=== PATIENT | male | born 1990 | race Caucasian/White ===

== ENCOUNTER → 2016-10-07 | Outpatient (REF) | payer MEDICAID ==
[~2016-10-07] MED LIST: DEPA250T3; DEPA500T; DEPA500T2 OR; RISP0.5T20; RISP2TAB12; RISP2TAB12 OR; RISP3TAB16; SERO400T3; SERO400T3 OR; TENEX; ZONEGRAN; ZONEGRAN PO; Zonegran
[2016-10-07 13:26] LABS: BASO % 0.2 % (0.0-1.0); EOS % 0.3 % (0.0-3.0); LARGE UNSTAINED CELL # 0.1 K/mm3 (0.0-0.4); LARGE UNSTAINED CELL % 1.9 % (0.0-4.0); LYMPH # 3.5 K/mm3 (1.5-6.5); MEAN CORPUSCULAR HEMOGLOBIN 33.9 pg (27.0-33.0); MEAN CORPUSCULAR HGB CONC 34.3 g/dl (32.0-36.5); MEAN CORPUSCULAR VOLUME 98.7 fl (80.0-96.0); MONO # 0.3 K/mm3 (0.0-0.8); MONO % 5.7 % (0.0-5.0); NEUTROPHILS # 1.4 K/mm3 (1.8-7.7); NEUTROPHILS % 25.9 % (36.0-66.0); PLATELET COUNT, AUTOMATED 172 k/mm3 (150-450); RED CELL DISTRIBUTION WIDTH 13.9 % (11.5-14.5); WHITE BLOOD COUNT 5.2 K/mm3 (4.0-10.0)
[2016-10-07 13:42] LABS: ALBUMIN 3.6 GM/DL (3.2-5.2); ALBUMIN/GLOBULIN RATIO 0.86 (1.00-1.93); ALKALINE PHOSPHATASE 109 U/L (45-117); ALT/SGPT 57 U/L (12-78); ANION GAP 8 MEQ/L (8-16); AST/SGOT 24 U/L (15-37); BILIRUBIN,TOTAL 0.3 MG/DL (0.2-1.0); BLOOD UREA NITROGEN 8 MG/DL (7-18); CARBON DIOXIDE LEVEL 28 MEQ/L (21-32); CHLORIDE LEVEL 107 MEQ/L (98-107); CREATININE FOR GFR 0.77 MG/DL (0.70-1.30); GLOMERULAR FILTRATION RATE > 60.0 (>60); GLUCOSE, FASTING 132 MG/DL (70-105); POTASSIUM SERUM 3.7 MEQ/L (3.5-5.1); SODIUM LEVEL 143 MEQ/L (136-145); TOTAL PROTEIN 7.8 GM/DL (6.4-8.2)
== END ==
LOC: M LABNEURO 09:48
PROVIDERS: ATTEND Psychiatry & Neurology Neurology
DX: R56.9 Unspecified convulsions (principal)

== ENCOUNTER → 2016-11-07 | Outpatient (REF) | payer MEDICAID ==
[2016-11-07 14:27] LABS: ANION GAP 10 MEQ/L (8-16); BLOOD UREA NITROGEN 8 MG/DL (7-18); CALCIUM LEVEL 8.9 MG/DL (8.5-10.1); CARBON DIOXIDE LEVEL 29 MEQ/L (21-32); CHLORIDE LEVEL 102 MEQ/L (98-107); CREATININE FOR GFR 0.66 MG/DL (0.70-1.30); FREE T4 0.99 NG/DL (0.76-1.46); GLOMERULAR FILTRATION RATE > 60.0 (>60); GLUCOSE, FASTING 262 MG/DL (70-105); POTASSIUM SERUM 3.7 MEQ/L (3.5-5.1); SODIUM LEVEL 141 MEQ/L (136-145)
== END ==
LOC: M LABNEURO 10:49
PROVIDERS: ATTEND Internal Medicine Endocrinology, Diabetes & Metabolism
DX: D49.7 Neoplasm of unspecified behavior of endocrine glands and other parts of nervous system (principal)

== ENCOUNTER → 2016-11-15 | Outpatient (REF) | payer MEDICAID ==
[2016-11-15 14:02] LABS: ANION GAP 7 MEQ/L (8-16); BLOOD UREA NITROGEN 9 MG/DL (7-18); CALCIUM LEVEL 8.8 MG/DL (8.5-10.1); CARBON DIOXIDE LEVEL 29 MEQ/L (21-32); CHLORIDE LEVEL 102 MEQ/L (98-107); CREATININE FOR GFR 0.61 MG/DL (0.70-1.30); GLOMERULAR FILTRATION RATE > 60.0 (>60); GLUCOSE, FASTING 144 MG/DL (70-105); POTASSIUM SERUM 4.3 MEQ/L (3.5-5.1); SODIUM LEVEL 138 MEQ/L (136-145)
== END ==
LOC: M LABNEURO 13:13
PROVIDERS: ATTEND Internal Medicine Endocrinology, Diabetes & Metabolism
DX: D49.7 Neoplasm of unspecified behavior of endocrine glands and other parts of nervous system (principal)

== ENCOUNTER → 2016-11-25 | Outpatient (REF) | payer MEDICAID ==
[2016-11-25 19:07] LABS: ANION GAP 7 MEQ/L (8-16); BLOOD UREA NITROGEN 9 MG/DL (7-18); CALCIUM LEVEL 9.5 MG/DL (8.5-10.1); CARBON DIOXIDE LEVEL 30 MEQ/L (21-32); CHLORIDE LEVEL 101 MEQ/L (98-107); GLOMERULAR FILTRATION RATE > 60.0 (>60); GLUCOSE, FASTING 169 MG/DL (70-105); POTASSIUM SERUM 4.4 MEQ/L (3.5-5.1); SODIUM LEVEL 138 MEQ/L (136-145)
== END ==
LOC: M LABNEURO 16:55
PROVIDERS: ATTEND Internal Medicine Endocrinology, Diabetes & Metabolism
DX: D49.7 Neoplasm of unspecified behavior of endocrine glands and other parts of nervous system (principal)

== ENCOUNTER → 2016-12-02 | Outpatient (REF) | payer MEDICAID | LOC: M LABNEURO 12:40 | PROVIDERS: ATTEND Internal Medicine Endocrinology, Diabetes & Metabolism | DX: R73.02 Impaired glucose tolerance (oral) (principal) ==

== ENCOUNTER 2017-06-17 10:33 | Outpatient (CLI) | payer MEDICAID ==
[2017-06-17] MEDS ORDERED: PROHANCE 279.3MG/ML 15ML VIAL (A9576) As Ordered (12:17)
[2017-06-17] MEDS ORDERED: PROHANCE 279.3MG/ML 5ML VIAL (A9576) As Ordered (12:17)
[2017-06-17] MEDS ORDERED: MIDAZOLAM INJ 2 MG/2 ML VIAL (J2250) As Ordered ×2 (13:46)
[2017-06-17] MEDS ORDERED: ONDANSETRON 4MG/2ML VIAL (J2405) IV (15:15)
[2017-06-17] MEDS ORDERED: LR 1,000 ML IV (15:15)
== END 2017-06-17 16:40 | disposition home or self-care (01) ==
LOC: M RAD 10:33
DX: G93.89 Other specified disorders of brain (principal); Z98.890 Other specified postprocedural states
CPT/HCPCS: A9576

== ENCOUNTER → 2017-07-22 | Outpatient (REF) | payer MEDICAID ==
[2017-07-22 14:11] LABS: ALBUMIN 3.8 GM/DL (3.2-5.2); ALBUMIN/GLOBULIN RATIO 1.09 (1.00-1.93); ALKALINE PHOSPHATASE 121 U/L (45-117); ALT/SGPT 126 U/L (12-78); ANION GAP 10 MEQ/L (8-16); AST/SGOT 65 U/L (7-37); BILIRUBIN,TOTAL 0.4 MG/DL (0.2-1.0); BLOOD UREA NITROGEN 14 MG/DL (7-18); CALCIUM LEVEL 8.9 MG/DL (8.5-10.1); CARBON DIOXIDE LEVEL 26 MEQ/L (21-32); CHLORIDE LEVEL 104 MEQ/L (98-107); CREATININE FOR GFR 0.56 MG/DL (0.70-1.30); GLOMERULAR FILTRATION RATE > 60.0 (>60); GLUCOSE, FASTING 167 MG/DL (70-105); POTASSIUM SERUM 3.8 MEQ/L (3.5-5.1); SODIUM LEVEL 140 MEQ/L (136-145); TOTAL PROTEIN 7.3 GM/DL (6.4-8.2); VALPROIC ACID (DEPAKOTE) 81.2 UG/ML (50.0-100.0)
[2017-07-22 15:10] LABS: BASO % 0.2 % (0.0-1.0); EOS % 0.9 % (0.0-3.0); HEMATOCRIT 37.8 % (42.0-52.0); HEMOGLOBIN 13.2 g/dl (14.0-18.0); LYMPH # 2.8 10^3/uL (1.5-6.5); MEAN CORPUSCULAR HEMOGLOBIN 32.4 pg (27.0-33.0); MEAN CORPUSCULAR HGB CONC 34.9 g/dl (32.0-36.5); MEAN CORPUSCULAR VOLUME 92.9 fl (80.0-96.0); MONO # 0.2 10^3/uL (0.0-0.8); MONO % 4.5 % (0.0-5.0); NEUTROPHILS # 1.4 10^3/uL (1.8-7.7); NEUTROPHILS % 31.4 % (36.0-66.0); PLATELET COUNT, AUTOMATED 189 10^3/uL (150-450); RED BLOOD COUNT 4.07 10^6/uL (4.30-6.10); RED CELL DISTRIBUTION WIDTH 12.3 % (11.5-14.5); WHITE BLOOD COUNT 4.5 10^3/uL (4.0-10.0)
== END ==
LOC: M LABNEURO 09:38
DX: R56.9 Unspecified convulsions (principal)

== ENCOUNTER → 2017-07-29 | Outpatient (REF) | payer MEDICAID ==
[2017-07-29 15:15] LABS: ANION GAP 6 MEQ/L (8-16); BLOOD UREA NITROGEN 11 MG/DL (7-18); CALCIUM LEVEL 9.6 MG/DL (8.5-10.1); CARBON DIOXIDE LEVEL 31 MEQ/L (21-32); CHLORIDE LEVEL 104 MEQ/L (98-107); CREATININE FOR GFR 0.59 MG/DL (0.70-1.30); FREE T4 1.21 NG/DL (0.76-1.46); GLOMERULAR FILTRATION RATE > 60.0 (>60); GLUCOSE, FASTING 77 MG/DL (70-105); POTASSIUM SERUM 4.1 MEQ/L (3.5-5.1); SODIUM LEVEL 141 MEQ/L (136-145)
[2017-07-29 15:25] LABS: TESTOSTERONE < 7 NG/DL (241-827)
== END ==
LOC: M LABNEURO 14:17
DX: E29.1 Testicular hypofunction (principal); E03.8 Other specified hypothyroidism; D49.7 Neoplasm of unspecified behavior of endocrine glands and other parts of nervous system; E27.8 Other specified disorders of adrenal gland

== ENCOUNTER → 2017-09-23 | Outpatient (REF) | payer MEDICAID ==
[2017-09-23 14:02] LABS: ALBUMIN/GLOBULIN RATIO 1.11 (1.00-1.93); ALKALINE PHOSPHATASE 140 U/L (45-117); ALT/SGPT 91 U/L (12-78); ANION GAP 6 MEQ/L (8-16); AST/SGOT 30 U/L (7-37); BILIRUBIN,TOTAL 0.4 MG/DL (0.2-1.0); BLOOD UREA NITROGEN 8 MG/DL (7-18); CARBON DIOXIDE LEVEL 30 MEQ/L (21-32); CHLORIDE LEVEL 107 MEQ/L (98-107); CREATININE FOR GFR 0.57 MG/DL (0.70-1.30); GLOMERULAR FILTRATION RATE > 60.0 (>60); GLUCOSE, FASTING 93 MG/DL (70-100); POTASSIUM SERUM 3.9 MEQ/L (3.5-5.1); SODIUM LEVEL 143 MEQ/L (136-145); TOTAL PROTEIN 7.6 GM/DL (6.4-8.2); VALPROIC ACID (DEPAKOTE) 72.1 UG/ML (50.0-100.0)
[2017-09-23 14:09] LABS: BASO % 0.3 % (0.0-1.0); EOS % 0.6 % (0.0-3.0); HEMATOCRIT 40.9 % (42.0-52.0); IMMATURE GRANULOCYTE % 0.5 % (0-3.0); LYMPH # 3.3 10^3/uL (1.5-6.5); LYMPH % 53.4 % (24.0-44.0); MEAN CORPUSCULAR HEMOGLOBIN 32.1 pg (27.0-33.0); MEAN CORPUSCULAR HGB CONC 34.2 g/dl (32.0-36.5); MEAN CORPUSCULAR VOLUME 93.8 fl (80.0-96.0); MONO # 0.7 10^3/uL (0.0-0.8); NEUTROPHILS # 2.1 10^3/uL (1.8-7.7); NEUTROPHILS % 34.2 % (36.0-66.0); PLATELET COUNT, AUTOMATED 221 10^3/uL (150-450); RED BLOOD COUNT 4.36 10^6/uL (4.30-6.10); RED CELL DISTRIBUTION WIDTH 12.7 % (11.5-14.5); WHITE BLOOD COUNT 6.3 10^3/uL (4.0-10.0)
== END ==
LOC: M LABNEURO 09:53
DX: R56.9 Unspecified convulsions (principal)
CPT/HCPCS: 80164

== ENCOUNTER → 2017-10-15 | Outpatient (CLI) | payer MEDICAID | LOC: M RAD 09:34 | DX: N63.10 Unspecified lump in the right breast, unspecified quadrant (principal) | CPT/HCPCS: 77066 ==

== ENCOUNTER → 2017-12-29 | Outpatient (REF) | payer MEDICAID ==
[2017-12-29 17:32] LABS: ALBUMIN 4.1 GM/DL (3.2-5.2); ANION GAP 9 MEQ/L (8-16); BLOOD UREA NITROGEN 9 MG/DL (7-18); CALCIUM LEVEL 9.1 MG/DL (8.5-10.1); CARBON DIOXIDE LEVEL 26 MEQ/L (21-32); CHLORIDE LEVEL 103 MEQ/L (98-107); CREATININE FOR GFR 0.69 MG/DL (0.70-1.30); GLOMERULAR FILTRATION RATE > 60.0 (>60); GLUCOSE, FASTING 94 MG/DL (70-100); POTASSIUM SERUM 4.5 MEQ/L (3.5-5.1); SODIUM LEVEL 138 MEQ/L (136-145)
[2017-12-29 17:39] LABS: ESTIMATED AVERAGE GLUCOSE 126 MG/DL (60-110)
[2017-12-29 17:42] LABS: TESTOSTERONE 871 NG/DL (241-827)
== END ==
LOC: M LABNEURO 13:52
DX: E29.1 Testicular hypofunction (principal); M79.89 Other specified soft tissue disorders; Z13.1 Encounter for screening for diabetes mellitus

== ENCOUNTER 2018-01-05 11:28 | Emergency (ER) | payer MEDICAID ==
[2018-01-05] MEDS: ONDANSETRON 4MG/2ML VIAL (J2405) IV (13:52)
[2018-01-05] MEDS: MORPHINE 4 MG/ML 1ML VIAL/SYRINGE (J2270) IV ×3 (13:52→15:56)
[2018-01-05] MEDS: NS 1,000 ML IV (15:06)
== END 2018-01-05 16:23 | disposition short-term general hospital (02) ==
LOC: M ED 11:28
DX: S82.252A Displaced comminuted fracture of shaft of left tibia, initial encounter for closed fracture (principal); S82.452A Displaced comminuted fracture of shaft of left fibula, initial encounter for closed fracture; W01.0XXA Fall on same level from slipping, tripping and stumbling without subsequent striking against object, initial encounter; Y92.89 Other specified places as the place of occurrence of the external cause; Y93.9 Activity, unspecified; Y99.9 Unspecified external cause status; E11.9 Type 2 diabetes mellitus without complications; R56.9 Unspecified convulsions; F84.0 Autistic disorder; Z79.84 Long term (current) use of oral hypoglycemic drugs; Z79.899 Other long term (current) drug therapy
CPT/HCPCS: J2270

== ENCOUNTER 2018-03-30 09:06 | Outpatient (RCR) | payer MEDICAID | END 2018-04-19 | LOC: M PT 09:06 | DX: S82.202D Unspecified fracture of shaft of left tibia, subsequent encounter for closed fracture with routine healing (principal); S82.402D Unspecified fracture of shaft of left fibula, subsequent encounter for closed fracture with routine healing | CPT/HCPCS: 97110 ==

== ENCOUNTER → 2018-04-06 | Outpatient (REF) | payer MEDICAID ==
[2018-04-06 19:10] LABS: ANION GAP 13 MEQ/L (8-16); BLOOD UREA NITROGEN 8 MG/DL (7-18); CALCIUM LEVEL 9.4 MG/DL (8.5-10.1); CARBON DIOXIDE LEVEL 24 MEQ/L (21-32); CHLORIDE LEVEL 103 MEQ/L (98-107); CREATININE FOR GFR 0.75 MG/DL (0.70-1.30); GLOMERULAR FILTRATION RATE > 60.0 (>60); GLUCOSE, FASTING 159 MG/DL (70-100); POTASSIUM SERUM 4.4 MEQ/L (3.5-5.1); SODIUM LEVEL 140 MEQ/L (136-145); TESTOSTERONE 372 NG/DL (241-827)
== END ==
LOC: M LABNEURO 14:44
DX: D49.7 Neoplasm of unspecified behavior of endocrine glands and other parts of nervous system (principal)

== ENCOUNTER 2018-04-21 09:11 | Outpatient (RCR) | payer MEDICAID | END 2018-05-20 | disposition home or self-care (01) | LOC: M PT 09:11 | DX: S82.202D Unspecified fracture of shaft of left tibia, subsequent encounter for closed fracture with routine healing (principal); S82.402D Unspecified fracture of shaft of left fibula, subsequent encounter for closed fracture with routine healing | CPT/HCPCS: 97110 ==

== ENCOUNTER 2018-06-04 09:15 | Outpatient (RCR) | payer MEDICAID | END 2018-06-19 | LOC: M PT 09:15 | DX: S82.402D Unspecified fracture of shaft of left fibula, subsequent encounter for closed fracture with routine healing (principal); S82.202D Unspecified fracture of shaft of left tibia, subsequent encounter for closed fracture with routine healing; X58.XXXD Exposure to other specified factors, subsequent encounter | CPT/HCPCS: 97110 ==

== ENCOUNTER 2018-06-23 09:10 | Outpatient (RCR) | payer MEDICAID ==
[~2018-06-23 09:10] MED LIST changes: +DESM0.1T12 PO; +GABA-843; +HYDR-3291 PO; +LEVE750T5 PO; +LEVO100T5; +METF500T4; +METH1TAB40; +OLAN15TA PO; +TEST200I14; +TYLE325C PO
== END 2018-07-20 ==
LOC: M PT 09:10
PROVIDERS: ATTEND Orthopaedic Surgery
DX: S82.402D Unspecified fracture of shaft of left fibula, subsequent encounter for closed fracture with routine healing (principal); S82.202D Unspecified fracture of shaft of left tibia, subsequent encounter for closed fracture with routine healing

== ENCOUNTER → 2018-07-06 | Outpatient (REF) | payer MEDICAID ==
[2018-07-06 18:00] LABS: BLOOD UREA NITROGEN 8 MG/DL (7-18); CALCIUM LEVEL 8.8 MG/DL (8.5-10.1); CARBON DIOXIDE LEVEL 29 MEQ/L (21-32); CHLORIDE LEVEL 104 MEQ/L (98-107); CREATININE FOR GFR 0.74 MG/DL (0.70-1.30); GLOMERULAR FILTRATION RATE > 60.0 (>60); GLUCOSE, FASTING 81 MG/DL (70-100); POTASSIUM SERUM 4.2 MEQ/L (3.5-5.1); SODIUM LEVEL 140 MEQ/L (136-145)
== END ==
LOC: M LABNEURO 13:41
PROVIDERS: ATTEND Internal Medicine Endocrinology, Diabetes & Metabolism
DX: E23.2 Diabetes insipidus (principal)

== ENCOUNTER → 2018-08-14 | Outpatient (REF) | payer MEDICAID ==
[~2018-08-14] MED LIST changes: -DESM0.1T12 PO; +DESM0.1T2 PO
[2018-08-14 14:10] LABS: HEMOGLOBIN A1c 6.3 %
[2018-08-14 15:12] LABS: BLOOD UREA NITROGEN 7 MG/DL (7-18); CALCIUM LEVEL 8.6 MG/DL (8.5-10.1); CARBON DIOXIDE LEVEL 25 MEQ/L (21-32); CHLORIDE LEVEL 105 MEQ/L (98-107); CREATININE FOR GFR 0.74 MG/DL (0.70-1.30); FREE T4 1.18 NG/DL (0.76-1.46); GLOMERULAR FILTRATION RATE > 60.0 (>60); GLUCOSE, FASTING 90 MG/DL (70-100); POTASSIUM SERUM 4.2 MEQ/L (3.5-5.1); SODIUM LEVEL 139 MEQ/L (136-145)
[2018-08-14 16:01] LABS: TESTOSTERONE 466 NG/DL (241-827)
== END ==
LOC: M LABNEURO 08:49
PROVIDERS: ATTEND Internal Medicine Endocrinology, Diabetes & Metabolism
DX: E23.2 Diabetes insipidus (principal)

== ENCOUNTER 2018-09-08 12:37 | Outpatient (CLI) | payer MEDICAID ==
[2018-09-08] MEDS ORDERED: PROHANCE 279.3MG/ML 5ML VIAL (A9576) As Ordered ONE (14:28)
[2018-09-08] MEDS ORDERED: PROHANCE 279.3MG/ML 15ML VIAL (A9576) As Ordered ONE (14:29)
[2018-09-08 16:40] VITALS: BP 139/74
--- NOTE | 2018-09-09 08:48 | REP ---
MRI BRAIN WITHOUT AND WITH CONTRAST: HISTORY: Craniopharyngioma. CONTRAST: ProHance 19 mL. COMPARISON: 02/27/2016 and 06/17/2017. The examination is limited secondary to motion. Areas of increased signal intensity on T2-weighted images are present in the posterior parietal lobes. There is dilatation of the overlying cortical sulci and posterior bodies and atria of the lateral ventricles. This represents encephalomalacia. There is no intraparenchymal hemorrhage, infarct or midline shift. There is no hydrocephalus or extracerebral collection. Postoperative change is present in the sella turcica. A small amount of residual enhancing tissue is present in the sella turcica. There is inferior retraction of the optic chiasm, anterior floor of the third ventricle and infundibulum to the right. The optic chiasm is atrophic. The cavernous sinuses are normal in appearance. Mucosal thickening is present in the right maxillary sinus. IMPRESSION: 1. Bilateral parotid lobe encephalomalacia. 2. The patient is status post resection of a pituitary tumor. There is no recurrent tumor. Electronically Signed by Jesus Lemus MD 09/09/2018 08:50 A
== END 2018-09-08 17:49 | disposition home or self-care (01) ==
LOC: M SDC 12:37
PROVIDERS: ATTEND Neurological Surgery
DX: D44.4 Neoplasm of uncertain behavior of craniopharyngeal duct (principal); Z98.890 Other specified postprocedural states
CPT/HCPCS: 70553; 99152; 99153; A9576

== ENCOUNTER → 2019-01-14 | Outpatient (REF) | payer MEDICAID ==
[~2019-01-14] MED LIST changes: +ATIV1TAB10 PO; -HYDR-3291 PO; +HYDR-4513 PO; +HYDR50TA70 PO; +KLON2TAB PO; +RANI1SYP PO; +ZYPR20TA PO
[2019-01-14 13:41] LABS: BASO % 0.3 % (0.0-1.0); EOS # 0.1 10^3/uL (0.0-0.50); EOS % 0.9 % (0.0-3.0); HEMATOCRIT 37.5 % (42.0-52.0); HEMOGLOBIN 13.1 g/dl (13.5-17.5); LYMPH # 2.8 10^3/uL (1.5-6.5); MEAN CORPUSCULAR HEMOGLOBIN 31.3 pg (27.0-33.0); MEAN CORPUSCULAR HGB CONC 34.9 g/dl (32.0-36.5); MEAN CORPUSCULAR VOLUME 89.7 fl (80.0-96.0); MONO # 0.4 10^3/uL (0.0-0.8); NEUTROPHILS # 2.5 10^3/uL (1.8-7.7); NEUTROPHILS % 43.5 % (36.0-66.0); PLATELET COUNT, AUTOMATED 226 10^3/uL (150-450); RED BLOOD COUNT 4.18 10^6/uL (4.30-6.10); WHITE BLOOD COUNT 5.8 10^3/uL (4.0-10.0)
[2019-01-14 14:04] LABS: ALBUMIN 4.1 GM/DL (3.2-5.2); ALT/SGPT 85 U/L (12-78); BILIRUBIN,TOTAL 0.6 MG/DL (0.2-1.0); BLOOD UREA NITROGEN 10 MG/DL (7-18); CALCIUM LEVEL 9.5 MG/DL (8.5-10.1); CARBON DIOXIDE LEVEL 25 MEQ/L (21-32); CHLORIDE LEVEL 107 MEQ/L (98-107); CREATININE FOR GFR 0.82 MG/DL (0.70-1.30); GLOMERULAR FILTRATION RATE > 60.0 (>60); GLUCOSE, FASTING 87 MG/DL (70-100); POTASSIUM SERUM 3.7 MEQ/L (3.5-5.1); SODIUM LEVEL 139 MEQ/L (136-145); TOTAL PROTEIN 7.5 GM/DL (6.4-8.2)
== END ==
LOC: M LABNEURO 11:22
PROVIDERS: ATTEND Psychiatry & Neurology Neurology
DX: G40.909 Epilepsy, unspecified, not intractable, without status epilepticus (principal)

== ENCOUNTER 2019-01-23 19:05 | Emergency (ER) | payer MEDICAID ==
[~2019-01-23 19:05] MED LIST changes: -ATIV1TAB10 PO; -HYDR50TA70 PO; -KLON2TAB PO; -RANI1SYP PO; -ZYPR20TA PO
[2019-01-23 20:29] LABS: HEMATOCRIT 39.2 % (42.0-52.0); HEMOGLOBIN 13.6 g/dl (13.5-17.5); MEAN CORPUSCULAR HEMOGLOBIN 30.8 pg (27.0-33.0); MEAN CORPUSCULAR HGB CONC 34.7 g/dl (32.0-36.5); MEAN CORPUSCULAR VOLUME 88.9 fl (80.0-96.0); PLATELET COUNT, AUTOMATED 222 10^3/uL (150-450); RED BLOOD COUNT 4.41 10^6/uL (4.30-6.10); WHITE BLOOD COUNT 6.4 10^3/uL (4.0-10.0)
[2019-01-23 20:49] LABS: AMPHETAMINES LEVEL URINE NEGATIVE (NEGATIVE); BARBITURATES URINE NEGATIVE (NEGATIVE); BENZODIAZEPINES URINE NEGATIVE (NEGATIVE); CANNABINOIDS URINE NEGATIVE (NEGATIVE); COCAINE METABOLITE URINE NEGATIVE (NEGATIVE); METHADONE URINE NEGATIVE (NEGATIVE); OPIATES URINE NEGATIVE (NEGATIVE); PHENCYCLIDINE URINE NEGATIVE (NEGATIVE)
[2019-01-23 21:02] LABS: ACETAMINOPHEN LEVEL < 2.0 UG/ML (10.0-30.0); ALBUMIN 3.9 GM/DL (3.2-5.2); ALT/SGPT 102 U/L (12-78); BILIRUBIN,DIRECT < 0.1 MG/DL (0.0-0.2); BILIRUBIN,TOTAL 0.2 MG/DL (0.2-1.0); BLOOD UREA NITROGEN 9 MG/DL (7-18); CALCIUM LEVEL 8.8 MG/DL (8.5-10.1); CARBON DIOXIDE LEVEL 24 MEQ/L (21-32); CHLORIDE LEVEL 107 MEQ/L (98-107); CREATININE FOR GFR 0.79 MG/DL (0.70-1.30); ETHYL ALCOHOL (ETHANOL) < 0.003 % (0.000-0.010); GLOMERULAR FILTRATION RATE > 60.0 (>60); GLUCOSE, FASTING 101 MG/DL (70-100); POTASSIUM SERUM 4.4 MEQ/L (3.5-5.1); SALICYLATE LEVEL < 1.7 MG/DL (5.0-30.0); SODIUM LEVEL 140 MEQ/L (136-145); THYROID STIMULATING HORMONE < 0.005 uIU/ML (0.358-3.740); TOTAL PROTEIN 7.7 GM/DL (6.4-8.2)
[2019-01-23] MEDS ORDERED: levETIRAcetam 250MG TABLET (KEPPRA) PO ONE (22:15)
[2019-01-23] MEDS ORDERED: OLANZapine 5 MG TAB PO ONE (22:15)
[2019-01-23] MEDS ORDERED: ATIV1TAB10 PO (22:42)
[2019-01-23] MEDS ORDERED: RANI1SYP PO (22:42)
[2019-01-23] MEDS ORDERED: HYDR50TA70 PO (22:42)
[2019-01-23] MEDS ORDERED: raNITIdine SYRUP 150 MG/10 ML UDC PO ONE (23:00)
[2019-01-23] MEDS ORDERED: DESMOPRESSIN ACETATE 0.1 MG TAB PO ONE (23:00)
[2019-01-24] MEDS ORDERED: levETIRAcetam 250MG TABLET (KEPPRA) PO ONE (13:00)
[2019-01-24] MEDS ORDERED: metFORMIN (GLUCOPHAGE) 1000 MG TABLET PO ONE (13:00)
[2019-01-24] MEDS ORDERED: hydrOXYzine 50 MG TAB PO ONE (13:00)
[2019-01-24] MEDS ORDERED: ONDANSETRON 4 MG ORAL DISINTEGRATING TAB (Q0162 PER 1MG) PO ONE (13:45)
[2019-01-24] MEDS ORDERED: ZYPR20TA PO (14:41)
[2019-01-24] MEDS ORDERED: KLON2TAB PO (14:42)
[2019-01-24] MEDS ORDERED: LORazepam 2 MG TAB PO STA (15:54)
[2019-01-24] MEDS ORDERED: hydrOXYzine 50 MG TAB PO PRN (16:00)
[2019-01-24] MEDS: DESMOPRESSIN ACETATE 0.1 MG TAB PO SCH (21:32)
[2019-01-24] MEDS ORDERED: OLANZapine 10 MG TAB PO ONE (22:00)
[2019-01-24] MEDS ORDERED: clonazePAM 1 MG TAB PO ONE (22:00)
[2019-01-25] MEDS ORDERED: LEVOTHYROXINE 100MCG TABLET (0.1MG) PO SCH (06:00)
[2019-01-25] MEDS: DESMOPRESSIN ACETATE 0.1 MG TAB PO SCH (10:58)
[2019-01-25] MEDS ORDERED: LORazepam 0.5 MG TAB PO STA (12:20)
[2019-01-25 13:40] VITALS: BP 123/75
== END 2019-01-25 13:38 | disposition home or self-care (01) ==
LOC: M ED 19:05
DX: F91.9 Conduct disorder, unspecified (principal); E11.9 Type 2 diabetes mellitus without complications; E23.2 Diabetes insipidus; G43.909 Migraine, unspecified, not intractable, without status migrainosus; Z79.899 Other long term (current) drug therapy; Z79.890 Hormone replacement therapy; Z79.84 Long term (current) use of oral hypoglycemic drugs
CPT/HCPCS: 36415; 80048; 80076; 80307; 84443; 85027; 99284; G0480; Q0162

== ENCOUNTER → 2019-02-04 | Outpatient (REF) | payer MEDICAID ==
[~2019-02-04] MED LIST changes: +ATIV1TAB10 PO; +HYDR50TA70 PO; +KLON2TAB PO; +RANI1SYP PO; +ZYPR20TA PO
[2019-02-04 13:41] LABS: FREE T3 3.2 PG/ML (2.2-4.0); FREE T4 1.23 NG/DL (0.76-1.46)
[2019-02-04 13:43] LABS: TESTOSTERONE < 7 NG/DL (241-827); TOTAL 25(OH) VITAMIN D 14.7 NG/ML (30.0-100.0); VITAMIN B12 LEVEL 585 PG/ML (247-911)
== END ==
LOC: M SFHCPLAZ 12:10
PROVIDERS: ATTEND Family Medicine
DX: R45.86 Emotional lability (principal)

== ENCOUNTER 2019-02-15 13:32 | Inpatient (IN) | payer MEDICAID ==
[~2019-02-15] VITALS: Ht 154.9 cm; Wt 87.7 kg
[~2019-02-15 13:32] MED LIST changes: -LEVO100T5; +LEVO100T5 PO; -METF500T4; +METF500T4 PO
[2019-02-15] MEDS ORDERED: LORazepam 2 MG TAB PO ONE (14:00)
[2019-02-15 14:52] LABS: HEMATOCRIT 39.3 % (42.0-52.0); HEMOGLOBIN 13.8 g/dl (13.5-17.5); MEAN CORPUSCULAR HEMOGLOBIN 31.7 pg (27.0-33.0); MEAN CORPUSCULAR HGB CONC 35.1 g/dl (32.0-36.5); MEAN CORPUSCULAR VOLUME 90.1 fl (80.0-96.0); PLATELET COUNT, AUTOMATED 228 10^3/uL (150-450); RED BLOOD COUNT 4.36 10^6/uL (4.30-6.10); WHITE BLOOD COUNT 6.5 10^3/uL (4.0-10.0)
[2019-02-15 15:13] LABS: AMPHETAMINES LEVEL URINE NEGATIVE (NEGATIVE); BARBITURATES URINE NEGATIVE (NEGATIVE); BENZODIAZEPINES URINE NEGATIVE (NEGATIVE); CANNABINOIDS URINE NEGATIVE (NEGATIVE); COCAINE METABOLITE URINE NEGATIVE (NEGATIVE); METHADONE URINE NEGATIVE (NEGATIVE); OPIATES URINE NEGATIVE (NEGATIVE); PHENCYCLIDINE URINE NEGATIVE (NEGATIVE)
[2019-02-15 15:27] LABS: ACETAMINOPHEN LEVEL < 2.0 UG/ML (10.0-30.0); ALBUMIN 4.2 GM/DL (3.2-5.2); ALT/SGPT 77 U/L (12-78); BILIRUBIN,DIRECT 0.1 MG/DL (0.0-0.2); BILIRUBIN,TOTAL 0.4 MG/DL (0.2-1.0); BLOOD UREA NITROGEN 13 MG/DL (7-18); CALCIUM LEVEL 9.5 MG/DL (8.5-10.1); CARBON DIOXIDE LEVEL 26 MEQ/L (21-32); CHLORIDE LEVEL 108 MEQ/L (98-107); CREATININE FOR GFR 0.82 MG/DL (0.70-1.30); ETHYL ALCOHOL (ETHANOL) < 0.003 % (0.000-0.010); GLOMERULAR FILTRATION RATE > 60.0 (>60); GLUCOSE, FASTING 93 MG/DL (70-100); SALICYLATE LEVEL < 1.7 MG/DL (5.0-30.0); SODIUM LEVEL 141 MEQ/L (136-145); THYROID STIMULATING HORMONE 0.007 uIU/ML (0.358-3.740); TOTAL PROTEIN 7.6 GM/DL (6.4-8.2)
[2019-02-15 16:10] LABS: FREE T4 1.25 NG/DL (0.76-1.46)
[2019-02-15] MEDS ORDERED: MOM 30ML SUSPENSION UDC PO PRN (16:30)
[2019-02-15 17:44] VITALS: BP 123/85
[2019-02-15] MEDS: HALOPERIDOL 5 MG TAB PO PRN ×2 (18:53→22:33)
[2019-02-15] MEDS: LORazepam 2 MG TAB PO PRN (18:53)
[2019-02-15] MEDS: diphenhydrAMINE 50 MG CAP PO PRN ×2 (18:53→22:33)
[2019-02-15] MEDS: traZODone 50 MG TAB PO PRN (22:14)
[2019-02-16] MEDS: LEVOTHYROXINE 100MCG TABLET (0.1MG) PO SCH (05:55)
[2019-02-16] MEDS: diphenhydrAMINE 50 MG CAP PO PRN ×3 (07:07→17:44)
[2019-02-16] MEDS: HALOPERIDOL 5 MG TAB PO PRN ×2 (07:07→09:40)
[2019-02-16] MEDS ORDERED: HALOPERIDOL 10 MG TAB PO ONE (10:00)
[2019-02-16] MEDS ORDERED: DIVALPROEX 500 MG TAB PO ONE (10:00)
[2019-02-16] MEDS ORDERED: guanFACINE 1 MG TAB PO ONE (10:00)
[2019-02-16] MEDS ORDERED: LORazepam 2 MG TAB PO ONE (10:00)
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
--- NOTE | 2019-02-16 10:59 | HPEPDOC ---
General Date of Admission Feb 15, 2019 at 16:23 Date of Service: Feb 16, 2019 Attending Physician: RADHA MIRANDA MD Chief Complaint The patient is a 28-year-old male admitted with a reason for visit of [facility]. History of Present Illness Patient is a 28-year-old male, primary history significant for developmental delay, type 2 diabetes mellitus, obesity, brought to the hospital and admitted ot inpatient psychiatric unit on account of acute agitation and disruptive behavior. Attempts at medical evaluation were not successful as patient was very agitated and uncooperative with exam Home Medications Scheduled Clonazepam (Klonopin) 2 Mg Tablet, 2 MG PO QHS Desmopressin Acetate (Desmopressin Acetate) 0.1 Mg Tab, 0.1 MG PO BID, (Reported) Levetiracetam (Levetiracetam) 750 Mg Tab, 750 MG PO BID, (Reported) Olanzapine (Zyprexa) 20 Mg Tablet, 1 TAB PO QPM Scheduled PRN Lorazepam (Ativan) 0.5 Mg Tablet, 0.5 MG PO BIDP PRN for anxiety, (Reported) Miscellaneous Medications (Tylenol) 325 Mg Cap, 1,000 MG PO, (Reported) Gabapentin (Gabapentin) 300 Mg Cap, (Reported) Hydroxyzine HCl (Hydroxyzine HCl) 50 Mg Tablet, 50 MG PO, (Reported) Levothyroxine Sodium (Levothyroxine Sodium) 100 Mcg Tab, (Reported) Metformin HCl (Metformin HCl ER) 500 Mg Tab, (Reported) Methocarbamol (Methocarbamol) 500 Mg Tab, (Reported) Ranitidine Hcl (Ranitidine HCl) 15 Mg/Ml Syrp, 150 MG PO, (Reported) Testosterone Cypionate (Testosterone Cypionate) 200 Mg/Ml Inj, (Reported) Allergies Coded Allergies: No Known Allergies (Verified , 01/23/19) Past Medical History Medical History DMT2 Obesity Seizure disorder Depression Developmental delay A-FIB/CHADSVASC A-FIB History Current/History of A-Fib/PAF?: No Current PO Anticoag Therapy: No Review of Systems Other systems Not completed due to clinical state of agitation at time of assessment Physical Examination Other physical findings GENERAL: moderately distressed SKIN : Warm, dry intact HEENT: Atraumatic, normocephalic, PERRL, moist mucous membrane NEURO: Alert to self and place, CN2-12 grossly intact PSYCH: agitation is present Vital Signs Vital Signs Date Time Temp Pulse Resp B/P (MAP) Pulse Ox O2 Delivery O2 Flow Rate FiO2 02/16/19 08:01 Room Air 02/15/19 17:44 97.6 84 16 123/85 (98) 99 Laboratory Data Labs 24H Laboratory Tests 2 02/15/19 14:37: Nucleated Red Blood Cells % (auto) 0.0, Anion Gap 7L, Glomerular Filtration Rate > 60.0, Calcium Level 9.5, Aspartate Amino Transf (AST/SGOT) 33, Alanine Aminotransferase (ALT/SGPT) 77, Alkaline Phosphatase 121H, Total Bilirubin 0.4, Direct Bilirubin 0.1, Total Protein 7.6, Albumin 4.2, Albumin/Globulin Ratio 1.24, Thyroid Stimulating Hormone (TSH) 0.007L, Free Thyroxine 1.25, Salicylates Level < 1.7L, Urine Amphetamines Screen NEGATIVE, Urine Benzodiazepines Screen NEGATIVE, Urine Opiates Screen NEGATIVE, Urine Methadone Screen NEGATIVE, Acetaminophen Level < 2.0L, Urine Barbiturates Screen NEGATIVE, Urine Phencyclidine Screen NEGATIVE, Urine Cocaine Metabolite Screen NEGATIVE, Urine Cannabinoids Screen NEGATIVE, Ethyl Alcohol Level < 0.003 CBC/BMP Laboratory Tests 02/15/19 14:37 Red Blood Count 4.36, Mean Corpuscular Volume 90.1, Mean Corpuscular Hemoglobin 31.7, Mean Corpuscular Hemoglobin Concent 35.1, Red Cell Distribution Width 11.9 Assessment/Plan Type 2 diabetes mellitus Seizure disorder Hypothyroidism Developmental delay Acute Agitation and disruptive behavior Assessment and plan Continue [facility] for underlying seizure history management. Finger stick checks prior to meals and at bedtime, diabetic diet, Glucophage 500 mg daily, type 2 diabetes mellitus Synthroid for hypothyroidism. Management of acute agitation and disruptive behavior by primary team Plan / VTE VTE Prophylaxis Ordered?: No VTE Exclusion Mechanical Proph: Low Risk for VTE ODALIS MEDELLIN Feb 16, 2019 10:59
[2019-02-16] MEDS ORDERED: levETIRAcetam 250MG TABLET (KEPPRA) PO ONE (11:00)
[2019-02-16] MEDS ORDERED: DEXTROSE 50% 50 ML SYRINGE IV PRN (11:15)
[2019-02-16] MEDS ORDERED: GLUCOSE 4 GM CHEW TABLET PO PRN (11:15)
[2019-02-16] MEDS ORDERED: GLUCAGON FOR INJ 1 MG VIAL (J1610) SC PRN (11:15)
[2019-02-16] MEDS ORDERED: OLAN20TA14 PO (11:22)
[2019-02-16] MEDS ORDERED: CLON2TAB7 PO (11:22)
[2019-02-16] MEDS ORDERED: RANI1TAB6 PO (11:22)
[2019-02-16] MEDS ORDERED: VITA500045 PO (11:22)
[2019-02-16] MEDS: DESMOPRESSIN ACETATE 0.1 MG TAB PO SCH ×3 (12:27→20:34)
[2019-02-16] MEDS: HALOPERIDOL 5 MG TAB PO SCH ×3 (13:23→20:49)
[2019-02-16] MEDS: hydrOXYzine 50 MG TAB PO PRN ×2 (17:13→22:59)
[2019-02-16] MEDS: metFORMIN XR 500MG TAB *GLUCOPHAGE XR PO SCH (17:13)
[2019-02-16] MEDS: LORazepam 2 MG TAB PO PRN (17:44)
[2019-02-16 18:03] VITALS: BP 109/77
[2019-02-16] MEDS: levETIRAcetam 250MG TABLET (KEPPRA) PO SCH (20:29)
[2019-02-16] MEDS: OLANZapine 10 MG TAB PO SCH (20:33)
[2019-02-16] MEDS: guanFACINE 1 MG TAB PO SCH (20:33)
[2019-02-16] MEDS: clonazePAM 1 MG TAB PO SCH (20:34)
[2019-02-16] MEDS: DIVALPROEX 500 MG TAB PO SCH (20:34)
[2019-02-16] MEDS ORDERED: DESMOPRESSIN ACETATE 0.1 MG TAB PO SCH (21:00)
[2019-02-16] MEDS: traZODone 50 MG TAB PO PRN (22:59)
[2019-02-17] MEDS: LEVOTHYROXINE 100MCG TABLET (0.1MG) PO SCH (06:16)
[2019-02-17 06:38] VITALS: BP 91/56
--- NOTE | 2019-02-17 07:53 | IPNPDOC ---
Text Note Date of Service The patient was seen on 02/17/19. NOTE notified by staff that patient TSH is 0.007 with normal T4; has received levothyroxine 100mcg daily for 2 doses (including today). Will d/c levothyroxine for 1 week, then restart at 88 mcg - will need repeat TSH in 4 weeks (03/21/19) VS,Fishbone, I+O VS, Fishbone, I+O Vital Signs Date Time Temp Pulse Resp B/P (MAP) Pulse Ox O2 Delivery O2 Flow Rate FiO2 02/17/19 06:38 97.3 62 18 91/56 (68) 02/16/19 08:01 Room Air 02/15/19 17:44 99 LARRY CEDEÑO DO Feb 17, 2019 07:53
[2019-02-17] MEDS ORDERED: HALOPERIDOL 10 MG TAB PO ONE ×2 (08:30→22:30)
[2019-02-17] MEDS ORDERED: LORazepam 2 MG TAB PO ONE ×2 (08:30→22:30)
[2019-02-17] MEDS: HALOPERIDOL 5 MG TAB PO SCH ×4 (09:00→21:42)
[2019-02-17 09:28] VITALS: BP 125/79
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
[2019-02-17] MEDS: levETIRAcetam 250MG TABLET (KEPPRA) PO SCH ×2 (09:31→21:43)
[2019-02-17] MEDS: guanFACINE 1 MG TAB PO SCH ×2 (09:31→21:41)
[2019-02-17] MEDS: DIVALPROEX 500 MG TAB PO SCH ×2 (09:31→21:42)
[2019-02-17] MEDS: DESMOPRESSIN ACETATE 0.1 MG TAB PO SCH ×3 (09:31→21:44)
[2019-02-17] MEDS: metFORMIN XR 500MG TAB *GLUCOPHAGE XR PO SCH (17:29)
[2019-02-17 18:00] VITALS: BP 126/71
[2019-02-17] MEDS: HALOPERIDOL 10 MG TAB PO PRN (20:43)
[2019-02-17] MEDS: diphenhydrAMINE 50 MG CAP PO PRN (20:43)
[2019-02-17] MEDS: hydrOXYzine 50 MG TAB PO PRN (20:43)
[2019-02-17] MEDS: OLANZapine 10 MG TAB PO SCH (20:43)
[2019-02-17] MEDS: clonazePAM 1 MG TAB PO SCH (21:42)
[2019-02-17] MEDS ORDERED: diphenhydrAMINE 50 MG CAP PO ONE (22:30)
[2019-02-18] MEDS: HALOPERIDOL 5 MG TAB PO SCH ×4 (08:01→20:35)
[2019-02-18] MEDS: DIVALPROEX 500 MG TAB PO SCH ×2 (08:01→20:35)
[2019-02-18] MEDS: DESMOPRESSIN ACETATE 0.1 MG TAB PO SCH ×3 (08:01→20:35)
[2019-02-18] MEDS: guanFACINE 1 MG TAB PO SCH ×2 (08:02→20:37)
[2019-02-18] MEDS: levETIRAcetam 250MG TABLET (KEPPRA) PO SCH ×2 (08:03→20:35)
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
[2019-02-18] MEDS: diphenhydrAMINE 50 MG CAP PO PRN (11:13)
[2019-02-18] MEDS: LORazepam 2 MG TAB PO PRN (12:58)
[2019-02-18] MEDS: metFORMIN XR 500MG TAB *GLUCOPHAGE XR PO SCH (17:28)
[2019-02-18 18:00] VITALS: BP 117/73
[2019-02-18] MEDS: clonazePAM 1 MG TAB PO SCH (20:35)
[2019-02-18] MEDS: traZODone 50 MG TAB PO PRN (20:36)
[2019-02-18] MEDS: OLANZapine 10 MG TAB PO SCH (20:36)
[2019-02-19] MEDS: diphenhydrAMINE 50 MG CAP PO PRN (07:22)
[2019-02-19] MEDS: LORazepam 2 MG TAB PO PRN (07:22)
[2019-02-19] MEDS: DIVALPROEX 500 MG TAB PO SCH ×2 (08:26→21:50)
[2019-02-19] MEDS: HALOPERIDOL 5 MG TAB PO SCH ×4 (08:26→21:49)
[2019-02-19] MEDS: levETIRAcetam 250MG TABLET (KEPPRA) PO SCH ×2 (08:26→21:49)
[2019-02-19] MEDS: guanFACINE 1 MG TAB PO SCH ×2 (08:26→21:54)
[2019-02-19] MEDS: DESMOPRESSIN ACETATE 0.1 MG TAB PO SCH ×3 (08:26→21:50)
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
[2019-02-19 09:49] VITALS: BP 144/81
[2019-02-19] MEDS: metFORMIN XR 500MG TAB *GLUCOPHAGE XR PO SCH (16:18)
[2019-02-19] MEDS: OLANZapine 10 MG TAB PO SCH (21:49)
[2019-02-19] MEDS: clonazePAM 1 MG TAB PO SCH (21:49)
[2019-02-20 06:50] VITALS: BP 96/55
[2019-02-20] MEDS: levETIRAcetam 250MG TABLET (KEPPRA) PO SCH ×2 (08:36→20:37)
[2019-02-20] MEDS: DESMOPRESSIN ACETATE 0.1 MG TAB PO SCH ×3 (08:36→20:37)
[2019-02-20] MEDS: DIVALPROEX 500 MG TAB PO SCH ×2 (08:36→20:36)
[2019-02-20] MEDS: HALOPERIDOL 5 MG TAB PO SCH ×4 (08:36→20:38)
[2019-02-20] MEDS: guanFACINE 1 MG TAB PO SCH ×2 (08:42→20:37)
[2019-02-20] MEDS: metFORMIN XR 500MG TAB *GLUCOPHAGE XR PO SCH (17:54)
[2019-02-20 18:19] VITALS: BP 98/56
[2019-02-20] MEDS: clonazePAM 1 MG TAB PO SCH (20:36)
[2019-02-20] MEDS: OLANZapine 10 MG TAB PO SCH (20:37)
[2019-02-21] MEDS: MAALOX 30 ML SUSP *UDC PO PRN (05:16)
[2019-02-21 06:30] VITALS: BP 122/68
[2019-02-21] MEDS ORDERED: LORazepam 1 MG TAB PO PRN (09:15)
[2019-02-21] MEDS: HALOPERIDOL 5 MG TAB PO SCH ×6 (09:24→21:00)
[2019-02-21] MEDS: guanFACINE 1 MG TAB PO SCH ×2 (09:24→21:00)
[2019-02-21] MEDS: DIVALPROEX 500 MG TAB PO SCH ×2 (09:25→21:00)
[2019-02-21] MEDS: levETIRAcetam 250MG TABLET (KEPPRA) PO SCH ×2 (09:25→20:57)
[2019-02-21] MEDS: DESMOPRESSIN ACETATE 0.1 MG TAB PO SCH ×4 (09:25→20:56)
[2019-02-21] MEDS: metFORMIN XR 500MG TAB *GLUCOPHAGE XR PO SCH (17:12)
[2019-02-21] MEDS: traZODone 50 MG TAB PO PRN (20:56)
[2019-02-21] MEDS: clonazePAM 1 MG TAB PO SCH (20:57)
[2019-02-21] MEDS: OLANZapine 10 MG TAB PO SCH (21:00)
[2019-02-22] MEDS: MAALOX 30 ML SUSP *UDC PO PRN (05:31)
[2019-02-22 06:51] VITALS: BP 96/59
[2019-02-22 07:25] LABS: ALBUMIN 3.2 GM/DL (3.2-5.2); ALT/SGPT 50 U/L (12-78); BILIRUBIN,TOTAL 0.3 MG/DL (0.2-1.0); BLOOD UREA NITROGEN 8 MG/DL (7-18); CALCIUM LEVEL 9.1 MG/DL (8.5-10.1); CARBON DIOXIDE LEVEL 26 MEQ/L (21-32); CHLORIDE LEVEL 106 MEQ/L (98-107); CPK CREATINE PHOSPHOKINASE 82 U/L (39-308); CREATININE FOR GFR 0.56 MG/DL (0.70-1.30); GLOMERULAR FILTRATION RATE > 60.0 (>60); GLUCOSE, FASTING 119 MG/DL (70-100); POTASSIUM SERUM 4.3 MEQ/L (3.5-5.1); SODIUM LEVEL 139 MEQ/L (136-145); TOTAL PROTEIN 6.3 GM/DL (6.4-8.2); VALPROIC ACID (DEPAKOTE) 89.5 UG/ML (50.0-100.0)
[2019-02-22] MEDS: guanFACINE 1 MG TAB PO SCH ×3 (09:00→21:47)
[2019-02-22] MEDS: HALOPERIDOL 5 MG TAB PO SCH ×5 (09:21→21:46)
[2019-02-22] MEDS: levETIRAcetam 250MG TABLET (KEPPRA) PO SCH ×3 (09:21→21:46)
[2019-02-22] MEDS: DIVALPROEX 500 MG TAB PO SCH ×3 (09:21→21:48)
[2019-02-22] MEDS: DESMOPRESSIN ACETATE 0.1 MG TAB PO SCH ×4 (09:21→21:47)
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
[2019-02-22 10:57] LABS: FREE THYROXINE INDEX 2.9 % (1.4-3.8); T UPTAKE 30 % (33-40); THYROID STIMULATING HORMONE 0.009 uIU/ML (0.358-3.740); THYROXINE (T4) 9.7 UG/DL (4.5-12.0)
[2019-02-22] MEDS: metFORMIN XR 500MG TAB *GLUCOPHAGE XR PO SCH (17:12)
[2019-02-22 18:23] VITALS: BP 122/74
[2019-02-22] MEDS: clonazePAM 1 MG TAB PO SCH (21:46)
[2019-02-22] MEDS: OLANZapine 10 MG TAB PO SCH (21:47)
[2019-02-22] MEDS: traZODone 50 MG TAB PO PRN (21:48)
[2019-02-23] MEDS: HALOPERIDOL 5 MG TAB PO SCH ×4 (08:01→21:57)
[2019-02-23] MEDS: DESMOPRESSIN ACETATE 0.1 MG TAB PO SCH ×3 (08:01→21:57)
[2019-02-23] MEDS: guanFACINE 1 MG TAB PO SCH ×2 (08:01→21:58)
[2019-02-23] MEDS: DIVALPROEX 500 MG TAB PO SCH ×2 (08:01→21:56)
[2019-02-23] MEDS: levETIRAcetam 250MG TABLET (KEPPRA) PO SCH ×2 (08:01→21:57)
--- NOTE | 2019-02-23 10:45 | MHIPNPDOC ---
[facility] Progress Note Progress Note DATE OF SERVICE: 02/23/19 HISTORY: Patient is a 28 -year-old , male, with a history of autism, intellectual disability, agitation/aggression, last admit [facility] 2009 for agitation who was brought in on 9.49 from [employer] at [facility] for agitation, aggression toward his mother which seen in doctor's office earlier in the day that continued when mother took pt home and told doctor it had been going on for 1 month and getting worse per ED. When PD arrived to pt's home to pick it up he was agitation, yelling, and uncooperative that continued when pt in transport and in ER BHU per ED. In ED pt was throwing furniture, banging his head on the wall, yelling, refusing to answer questions and was given ativan to calm down once. Did state his mother and he have been "in each other's faces" arguing in ED. Per ED pt has not been going to [facility] for 1 month reason unknown. Pt thought to be a danger to his mother per ED as most of his anger and agitation are directed toward her. Pt is agitated, anxious, needs constant redirection, banging bolanos, attempting to elope, uncooperative with questioning this am so history gathered for hospital records. He is a very poor historian. VITAL SIGNS: See below. NEW TEST RESULTS: TSH 0.009 (very minor improvement), synthroid d/c by medicine, depakote level 89.5 (therapeutic) LFTs/CPK all wnl limits CURRENT MEDICATIONS: See below. MENTAL STATUS EXAMINATION: Unable to assess as pt is asleep. Saw briefly yesterday when up eating a muffin, stated he was ok, very drowsy. after I left pt became agitated and walking milieu not responding to staff redirection and finally brought back to his room to calm down with staff support. Pt when not sleeping: General Appearance: well groomed, ds/not appear stated age (younger), hospital scrubs/clothing, other (microcephaly) Build: average Demeanor: hostile, preoccupied, guarded, other (agitated), yelling at 1:1 sitter and throwing minor items in room, poor ability to follow redirection Eye Contact: poor Activity: agitated, anxious Behavior: uncooperative, agitated, impulsive, aggressive, restless Speech: spontaneous, impoverished, other (yelling at times in frustration) Mood: anxious, angry, irritable, other (agitated) Mood "angry" Affect: inappropriate, labile, congruent, anxious, hostile, disorganized, other (agitated) Thought Process: concrete Thought Content (Delusions): denies SI, HI, AVH Thought Content (Other): autistic Thought Content (Aggressive): aggressive (assess), other (impulsive based on situation, no intent or plan) Perception (Hallucinations): none reported Perception (Other): none reported Cognition (Impairment of): unable to assess Cognition(Intelligence Est.): MR Oriented: Awake, Alert, Oriented times three Insight: poor Judgment: Poor Psychosis: Denies DIAGNOSES: Major depressive d/o recurrent, severe w/o psychosis r/o intermittent explosive d/o autistic spectrum disorder moderate-severe intellectual disability moderate-severe ASSESSMENT: No change from yesterday. Per staff pt frequently drowsy during day even with decrease in ativan. Depakote level 89.9 and is therapeutic. TSH 0.0009 very low. Monitoring weekly for improvement. SAw briefly while eating a muffin, very drowsy, no eye contact, stated he was ok, became agitated as stated above shortly after I saw him. MANAGEMENT PLAN: continue 1:1 sitter for safety and redirection. Medications: depakote 500mg bid guanfacine 1mg bid haldol 5mg tid ativan 2mg q2hr prn anxiety/agitation haldol 10mg q2hr prn agitation/aggression. Klonopin 1 MG QHS vistaril 50mg 2hr prn anxiety Desmopressin 0.1 MG BID, zyprexa 20mg QPM TIME SPENT: 30 minutes. Vital Signs Vital Signs Date Time Temp Pulse Resp B/P (MAP) Pulse Ox O2 Delivery O2 Flow Rate FiO2 02/23/19 08:01 130/72 02/22/19 18:23 97.9 84 18 Laboratory Data 24H Labs Laboratory Tests 2 02/22/19 17:14: Bedside Glucose (Misc Panel) 309H Current Medications Current Medications Medications (Trade) Dose Ordered Sig/Naya Route PRN Reason Start Time Stop Time Status Last Admin Dose Admin Al Hydrox/Mg Hydrox/Simethicone (Mylanta) 30 ml Q4HP PRN PO HEARTBURN/INDIGESTION 02/15/19 16:30 02/22/19 05:31 Clonazepam (KlonoPIN) 1 mg QHS PO 02/20/19 21:00 02/22/19 21:46 Clonazepam (KlonoPIN) 2 mg QHS PO 02/16/19 21:00 02/20/19 17:05 DC 02/19/19 21:49 Desmopressin Acetate (Ddavp) 0.1 mg BID PO 02/16/19 21:00 02/16/19 21:00 DC Desmopressin Acetate (Ddavp) 0.1 mg TID PO 02/16/19 09:00 02/23/19 08:01 Dextrose (Dextrose 50%) 25 ml ASDIRECTED PRN IV SEE LABEL COMMENTS 02/16/19 11:15 Diphenhydramine HCl (Benadryl) 50 mg Q2HP PRN PO SEVERE ANXIETY/AGITATION 02/15/19 16:30 02/19/19 07:22 Divalproex Sodium (Depakote) 500 mg BID PO 02/16/19 21:00 02/23/19 08:01 Glucagon (Glucagon) 1 mg ASDIRECTED PRN SC SEE LABEL COMMENTS 02/16/19 11:15 Glucose (Glucose) 16 GM ASDIRECTED PRN PO SEE LABEL COMMENTS 02/16/19 11:15 Guanfacine HCl (Tenex) 1 mg BID PO 02/16/19 21:00 02/23/19 08:01 Haloperidol (Haldol) 5 mg Q2HP PRN PO SEVERE ANXIETY/AGITATION 02/15/19 16:30 02/16/19 09:54 DC 02/16/19 09:40 Haloperidol (Haldol) 5 mg QID PO 02/16/19 13:00 02/23/19 08:01 Haloperidol (Haldol) 10 mg Q4HP PRN PO AGITATION 02/16/19 10:00 02/17/19 20:43 Home Med (Med Rec Complete!) ASDIRECTED XX 02/16/19 11:30 02/16/19 11:30 DC Hydroxyzine HCl (Atarax) 50 mg Q4HP PRN PO ANXIETY/AGITATION 02/16/19 10:45 02/17/19 20:43 Levetiracetam (Keppra) 750 mg BID PO 02/16/19 21:00 02/23/19 08:01 Levothyroxine Sodium (Synthroid) 88 mcg DAILY@06 PO 02/24/19 06:00 Levothyroxine Sodium (Synthroid) 100 mcg DAILY@06 PO 02/16/19 06:00 02/17/19 07:55 DC 02/17/19 06:16 Lorazepam (Ativan) 1 mg Q2HP PRN PO AGITATION 02/21/19 09:15 Lorazepam (Ativan) 2 mg Q2HP PRN PO SEVERE ANXIETY 02/15/19 16:30 02/21/19 09:06 DC 02/19/19 07:22 Magnesium Hydroxide (Milk Of Magnesia) 30 ml DAILYPRN PRN PO CONSTIPATION 02/15/19 16:30 Metformin HCl (Glucophage Xr) 500 mg DAILY@18 PO 02/16/19 18:00 02/22/19 17:12 Miscellaneous (Unresolved Clarification Entry) SEE LABEL COMMENTS DAILY XX 02/16/19 09:00 02/16/19 11:47 DC Olanzapine (ZyPREXA) 20 mg QHS PO 02/16/19 21:00 02/22/19 21:47 Trazodone HCl (Desyrel) 50 mg QHSP PRN PO INSOMNIA 02/15/19 16:30 02/22/19 21:48 Allergies Coded Allergies: No Known Allergies (Verified , 01/23/19) HELIO NEWTON DO Feb 23, 2019 10:44
[2019-02-23] MEDS: metFORMIN XR 500MG TAB *GLUCOPHAGE XR PO SCH (17:08)
[2019-02-23 18:00] VITALS: BP 108/59
[2019-02-23] MEDS: traZODone 50 MG TAB PO PRN (21:56)
[2019-02-23] MEDS: clonazePAM 1 MG TAB PO SCH (21:57)
[2019-02-23] MEDS: OLANZapine 10 MG TAB PO SCH (21:58)
[2019-02-23] MEDS: diphenhydrAMINE 50 MG CAP PO PRN (23:02)
[2019-02-24] MEDS ORDERED: LEVOTHYROXINE 88MCG TABLET (0.088 MG) PO SCH (06:00)
--- NOTE | 2019-02-24 09:32 | MHIPNPDOC ---
[facility] Progress Note Progress Note DATE OF SERVICE: 02/24/19 HISTORY: Patient is a 28 -year-old , male, with a history of autism, intellectual disability, agitation/aggression, last admit [facility] 2009 for agitation who was brought in on 9.49 from [employer] at [facility] for agitation, aggression toward his mother which seen in doctor's office earlier in the day that continued when mother took pt home and told doctor it had been going on for 1 month and getting worse per ED. When PD arrived to pt's home to pick it up he was agitation, yelling, and uncooperative that continued when pt in transport and in ER BHU per ED. In ED pt was throwing furniture, banging his head on the wall, yelling, refusing to answer questions and was given ativan to calm down once. Did state his mother and he have been "in each other's faces" arguing in ED. Per ED pt has not been going to [facility] for 1 month reason unknown. Pt thought to be a danger to his mother per ED as most of his anger and agitation are directed toward her. Pt is agitated, anxious, needs constant redirection, banging bolanos, attempting to elope, uncooperative with questioning this am so history gathered for hospital records. He is a very poor historian. VITAL SIGNS: See below. NEW TEST RESULTS: TSH 0.009 (very minor improvement), synthroid d/c by medicine, depakote level 89.5 (therapeutic) LFTs/CPK all wnl limits CURRENT MEDICATIONS: See below. MENTAL STATUS EXAMINATION: Unable to assess as pt is asleep. Saw briefly yesterday when up eating a muffin, stated he was ok, very drowsy. after I left pt became agitated and walking milieu not responding to staff redirection and finally brought back to his room to calm down with staff support. Pt when not sleeping: General Appearance: well groomed, ds/not appear stated age (younger), hospital scrubs/clothing, other (microcephaly) Build: average Demeanor: hostile, preoccupied, guarded, other (agitated), yelling at 1:1 sitter and throwing minor items in room, poor ability to follow redirection Eye Contact: poor Activity: agitated, anxious Behavior: uncooperative, agitated, impulsive, aggressive, restless Speech: spontaneous, impoverished, other (yelling at times in frustration) Mood: anxious, angry, irritable, other (agitated) Mood "angry" Affect: inappropriate, labile, congruent, anxious, hostile, disorganized, other (agitated) Thought Process: concrete Thought Content (Delusions): denies SI, HI, AVH Thought Content (Other): autistic Thought Content (Aggressive): aggressive (assess), other (impulsive based on situation, no intent or plan) Perception (Hallucinations): none reported Perception (Other): none reported Cognition (Impairment of): unable to assess Cognition(Intelligence Est.): MR Oriented: Awake, Alert, Oriented times three Insight: poor Judgment: Poor Psychosis: Denies DIAGNOSES: Major depressive d/o recurrent, severe w/o psychosis r/o intermittent explosive d/o autistic spectrum disorder moderate-severe intellectual disability moderate-severe ASSESSMENT: No change from yesterday. Per staff pt frequently drowsy during day and slept most of the day yesterday even with decrease in ativan and change in depakote dosing 250mg qam and 750mg qhs. When up continues to be agitated when up unless his mother is here visiting him then is more calm. Depakote level 89.9 and is therapeutic. TSH 0.0009 very low. Monitoring weekly for imp rovement. Will change depakote dosing to 1000mg qhs to aid day time sedation. Staff to wake pt up periodically during the day to either walk in milieu or plan with toys mother brought for him (action figures) to help him. MANAGEMENT PLAN: continue 1:1 sitter for safety and redirection. Medications: depakote 1000mg qhs guanfacine 1mg bid ativan 1mg q2hr prn anxiety/agitation haldol 10mg q2hr prn agitation/aggression. Klonopin 1 MG QHS vistaril 50mg 2hr prn anxiety Desmopressin 0.1 MG BID, zyprexa 20mg QPM TIME SPENT: 30 minutes. Vital Signs Vital Signs Date Time Temp Pulse Resp B/P (MAP) Pulse Ox O2 Delivery O2 Flow Rate FiO2 02/23/19 21:58 125/71 02/23/19 18:00 98.9 81 18 Laboratory Data 24H Labs Laboratory Tests 2 02/23/19 16:38: Bedside Glucose (Misc Panel) 254H 02/23/19 22:06: Bedside Glucose (Misc Panel) 239H 02/24/19 06:11: Bedside Glucose (Misc Panel) 117H 02/24/19 08:39: Current Medications Current Medications Medications (Trade) Dose Ordered Sig/Naya Route PRN Reason Start Time Stop Time Status Last Admin Dose Admin Al Hydrox/Mg Hydrox/Simethicone (Mylanta) 30 ml Q4HP PRN PO HEARTBURN/INDIGESTION 02/15/19 16:30 02/22/19 05:31 Clonazepam (KlonoPIN) 1 mg QHS PO 02/20/19 21:00 02/23/19 21:57 Clonazepam (KlonoPIN) 2 mg QHS PO 02/16/19 21:00 02/20/19 17:05 DC 02/19/19 21:49 Desmopressin Acetate (Ddavp) 0.1 mg BID PO 02/16/19 21:00 02/16/19 21:00 DC Desmopressin Acetate (Ddavp) 0.1 mg TID PO 02/16/19 09:00 02/23/19 21:57 Dextrose (Dextrose 50%) 25 ml ASDIRECTED PRN IV SEE LABEL COMMENTS 02/16/19 11:15 Diphenhydramine HCl (Benadryl) 50 mg Q2HP PRN PO SEVERE ANXIETY/AGITATION 02/15/19 16:30 02/23/19 23:02 Divalproex Sodium (Depakote) 500 mg BID PO 02/16/19 21:00 02/23/19 21:56 Glucagon (Glucagon) 1 mg ASDIRECTED PRN SC SEE LABEL COMMENTS 02/16/19 11:15 Glucose (Glucose) 16 GM ASDIRECTED PRN PO SEE LABEL COMMENTS 02/16/19 11:15 Guanfacine HCl (Tenex) 1 mg BID PO 02/16/19 21:00 02/23/19 21:58 Haloperidol (Haldol) 5 mg Q2HP PRN PO SEVERE ANXIETY/AGITATION 02/15/19 16:30 02/16/19 09:54 DC 02/16/19 09:40 Haloperidol (Haldol) 5 mg QID PO 02/16/19 13:00 02/23/19 21:57 Haloperidol (Haldol) 10 mg Q4HP PRN PO AGITATION 02/16/19 10:00 02/17/19 20:43 Home Med (Med Rec Complete!) ASDIRECTED XX 02/16/19 11:30 02/16/19 11:30 DC Hydroxyzine HCl (Atarax) 50 mg Q4HP PRN PO ANXIETY/AGITATION 02/16/19 10:45 02/17/19 20:43 Levetiracetam (Keppra) 750 mg BID PO 02/16/19 21:00 02/23/19 21:57 Levothyroxine Sodium (Synthroid) 88 mcg DAILY@06 PO 02/24/19 06:00 02/24/19 08:29 DC 02/24/19 06:16 Levothyroxine Sodium (Synthroid) 100 mcg DAILY@06 PO 02/16/19 06:00 02/17/19 07:55 DC 02/17/19 06:16 Lorazepam (Ativan) 1 mg Q2HP PRN PO AGITATION 02/21/19 09:15 Lorazepam (Ativan) 2 mg Q2HP PRN PO SEVERE ANXIETY 02/15/19 16:30 02/21/19 09:06 DC 02/19/19 07:22 Magnesium Hydroxide (Milk Of Magnesia) 30 ml DAILYPRN PRN PO CONSTIPATION 02/15/19 16:30 Metformin HCl (Glucophage Xr) 500 mg DAILY@18 PO 02/16/19 18:00 02/23/19 17:08 Miscellaneous (Unresolved Clarification Entry) SEE LABEL COMMENTS DAILY XX 02/16/19 09:00 02/16/19 11:47 DC Olanzapine (ZyPREXA) 20 mg QHS PO 02/16/19 21:00 02/23/19 21:58 Trazodone HCl (Desyrel) 50 mg QHSP PRN PO INSOMNIA 02/15/19 16:30 02/23/19 21:56 Allergies Coded Allergies: No Known Allergies (Verified , 01/23/19) HELIO NEWTON DO Feb 24, 2019 9:32 am
[2019-02-24] MEDS: guanFACINE 1 MG TAB PO SCH ×2 (09:49→21:00)
[2019-02-24] MEDS: levETIRAcetam 250MG TABLET (KEPPRA) PO SCH ×2 (09:49→22:21)
[2019-02-24] MEDS: DESMOPRESSIN ACETATE 0.1 MG TAB PO SCH ×3 (09:49→22:22)
[2019-02-24 09:50] VITALS: BP 121/62
[2019-02-24 10:06] LABS: FREE T4 0.87 NG/DL (0.76-1.46); THYROID STIMULATING HORMONE 0.011 uIU/ML (0.358-3.740)
[2019-02-24] MEDS ORDERED: ONDANSETRON 4 MG ORAL DISINTEGRATING TAB (Q0162 PER 1MG) SL PRN (11:00)
--- NOTE | 2019-02-24 11:22 | IPNPDOC ---
Text Note Date of Service The patient was seen on 02/24/19. NOTE Subjective: episode of nausea of vomiting this am per RN. Zofran ordered. Sitter at bedside Objective GENERAL: NAD SKIN : Warm, dry intact HEENT: Atraumatic, normocephalic, MS: no joint deformities NEURO: Alert and oriented , CN2-12 grossly intact PSYCH: no anxiety or agitation, appropriate mood and affect. Assessment Hypothyroidism -with TSH levels 0.007 -will restart synthroid at 88mcg daily -discussed with [facility] MD (Chay ROSALES) for appropriate continuity of care -low TSH levels likely due to iatrogenic causes and unlikely hyperthyroidism -FT4 levels within normal limits -prior laboratory values discussed (FT4 was 1.23 February 04) Nausea and Vomiting -zofran as needed VS,Fishbone, I+O VS, Fishbone, I+O Vital Signs Date Time Temp Pulse Resp B/P (MAP) Pulse Ox O2 Delivery O2 Flow Rate FiO2 02/24/19 09:50 87 18 121/62 (81) 02/23/19 18:00 98.9 ODALIS MEDELLINP Feb 24, 2019 11:22
[2019-02-24 12:22] LABS: THYROGLOBULIN ANTIBODY 49.6 U/ML (<60.0)
[2019-02-24] MEDS: metFORMIN XR 500MG TAB *GLUCOPHAGE XR PO SCH (17:09)
[2019-02-24 18:00] VITALS: BP 110/60
[2019-02-24] MEDS: traZODone 50 MG TAB PO PRN (22:21)
[2019-02-24] MEDS: DIVALPROEX 500 MG TAB PO SCH (22:21)
[2019-02-24] MEDS: OLANZapine 10 MG TAB PO SCH (22:21)
[2019-02-24] MEDS: clonazePAM 1 MG TAB PO SCH (22:22)
[2019-02-25] MEDS: LEVOTHYROXINE 88MCG TABLET (0.088 MG) PO SCH (06:04)
[2019-02-25 06:20] VITALS: BP 123/57
--- NOTE | 2019-02-25 09:48 | MHIPNPDOC ---
[facility] Progress Note Progress Note DATE OF SERVICE: 02/25/19 HISTORY: Patient is a 28 -year-old , male, with a history of autism, intellectual disability, agitation/aggression, last admit [facility] 2009 for agitation who was brought in on 9.49 from [employer] at [facility] for agitation, aggression toward his mother which seen in doctor's office earlier in the day that continued when mother took pt home and told doctor it had been going on for 1 month and getting worse per ED. When PD arrived to pt's home to pick it up he was agitation, yelling, and uncooperative that continued when pt in transport and in ER BHU per ED. In ED pt was throwing furniture, banging his head on the wall, yelling, refusing to answer questions and was given ativan to calm down once. Did state his mother and he have been "in each other's faces" arguing in ED. Per ED pt has not been going to [facility] for 1 month reason unknown. Pt thought to be a danger to his mother per ED as most of his anger and agitation are directed toward her. Pt is agitated, anxious, needs constant redirection, banging bolanos, attempting to elope, uncooperative with questioning this am so history gathered for hospital records. He is a very poor historian. VITAL SIGNS: See below. NEW TEST RESULTS: TSH 0.011 (very minor improvement), synthroid d/c by medicine, depakote level 89.5 (therapeutic) LFTs/CPK all wnl limits CURRENT MEDICATIONS: See below. MENTAL STATUS EXAMINATION: Unable to assess as pt is asleep. Pt when not sleeping: General Appearance: well groomed, ds/not appear stated age (younger), hospital scrubs/clothing, other (microcephaly) Build: average Demeanor: less hostile, preoccupied, guarded, other (agitated), yelling at 1:1 sitter and throwing minor items in room, poor ability to follow redirection Eye Contact: poor Activity: less agitated, anxious Behavior: more cooperative and less agitated, impulsive, aggressive, restless Speech: spontaneous, impoverished, other (yelling at times in frustration) Mood: dysthymic, less anxious, angry, irritable, other (agitated) Mood "I want my mom." Affect: appeared sad mother not here, less inappropriate, labile, congruent, anxious, hostile, disorganized, other (agitated) Thought Process: concrete Thought Content (Delusions): denies SI, HI, AVH Thought Content (Other): autistic Thought Content (Aggressive): less aggressive (assess), other (impulsive based on situation, no intent or plan) Perception (Hallucinations): none reported Perception (Other): none reported Cognition (Impairment of): unable to assess Cognition(Intelligence Est.): MR Oriented: Awake, Alert, Oriented times three Insight: poor Judgment: Poor Psychosis: Denies DIAGNOSES: Major depressive d/o recurrent, severe w/o psychosis r/o intermittent explosive d/o autistic spectrum disorder moderate-severe intellectual disability moderate-severe ASSESSMENT: Pt seen in his room and stated he wanted his mother. He appeared she wasn't here. Gave him a stress ball to help him with his anxiety, sadness regarding his mother not being here and reassured him that she will be here tomorrow. Per staff pt frequently drowsy during day but is less with adjustment in medications so that most sedating meds taken at night and not during the day unless given as a prn for agitation/anxiety now q4hrs. When up continues to be agitated although less with staff and less his mother is here visiting him then is more calm. Depakote level 89.9 and is therapeutic. TSH 0.0011 very low. Monitoring weekly for improvement. Staff to wake pt up periodically during the day to either walk in milieu or plan with toys mother brought for him (action figures) to help him. Attempted to play action figures with him yesterday but was not interested due to fatigue. Is compliant with all meds and more redirectable with staff. MANAGEMENT PLAN: continue 1:1 sitter for safety and redirection. Medications: depakote 1000mg qhs guanfacine 1mg bid ativan 1mg q2hr prn anxiety/agitation haldol 10mg q2hr prn agitation/aggression. Klonopin 1 MG QHS vistaril 50mg 2hr prn anxiety Desmopressin 0.1 MG BID, zyprexa 20mg QPM TIME SPENT: 30 minutes. Vital Signs Vital Signs Date Time Temp Pulse Resp B/P (MAP) Pulse Ox O2 Delivery O2 Flow Rate FiO2 02/25/19 06:20 97.9 77 18 123/57 (79) Laboratory Data 24H Labs Laboratory Tests 2 02/24/19 11:10: 02/24/19 17:12: Bedside Glucose (Misc Panel) 235H 02/25/19 06:10: Bedside Glucose (Misc Panel) 108H Current Medications Current Medications Medications (Trade) Dose Ordered Sig/Naya Route PRN Reason Start Time Stop Time Status Last Admin Dose Admin Al Hydrox/Mg Hydrox/Simethicone (Mylanta) 30 ml Q4HP PRN PO HEARTBURN/INDIGESTION 02/15/19 16:30 02/22/19 05:31 Clonazepam (KlonoPIN) 1 mg QHS PO 02/20/19 21:00 02/24/19 22:22 Clonazepam (KlonoPIN) 2 mg QHS PO 02/16/19 21:00 02/20/19 17:05 DC 02/19/19 21:49 Desmopressin Acetate (Ddavp) 0.1 mg BID PO 02/16/19 21:00 02/16/19 21:00 DC Desmopressin Acetate (Ddavp) 0.1 mg TID PO 02/16/19 09:00 02/24/19 22:22 Dextrose (Dextrose 50%) 25 ml ASDIRECTED PRN IV SEE LABEL COMMENTS 02/16/19 11:15 Diphenhydramine HCl (Benadryl) 50 mg Q2HP PRN PO SEVERE ANXIETY/AGITATION 02/15/19 16:30 02/24/19 13:20 DC 02/23/19 23:02 Diphenhydramine HCl (Benadryl) 50 mg Q4HP PRN PO SEVERE ANXIETY/AGITATION 02/24/19 13:30 Divalproex Sodium (Depakote) 500 mg BID PO 02/16/19 21:00 02/24/19 09:31 DC 02/23/19 21:56 Divalproex Sodium (Depakote) 1,000 mg QHS PO 02/24/19 21:00 02/24/19 22:21 Glucagon (Glucagon) 1 mg ASDIRECTED PRN SC SEE LABEL COMMENTS 02/16/19 11:15 Glucose (Glucose) 16 GM ASDIRECTED PRN PO SEE LABEL COMMENTS 02/16/19 11:15 Guanfacine HCl (Tenex) 1 mg BID PO 02/16/19 21:00 02/24/19 21:00 Haloperidol (Haldol) 5 mg Q2HP PRN PO SEVERE ANXIETY/AGITATION 02/15/19 16:30 02/16/19 09:54 DC 02/16/19 09:40 Haloperidol (Haldol) 5 mg QID PO 02/16/19 13:00 02/24/19 09:31 DC 02/23/19 21:57 Haloperidol (Haldol) 10 mg Q4HP PRN PO AGITATION 02/16/19 10:00 02/17/19 20:43 Home Med (Med Rec Complete!) ASDIRECTED XX 02/16/19 11:30 02/16/19 11:30 DC Hydroxyzine HCl (Atarax) 50 mg Q4HP PRN PO ANXIETY/AGITATION 02/16/19 10:45 02/17/19 20:43 Levetiracetam (Keppra) 750 mg BID PO 02/16/19 21:00 02/24/19 22:21 Levothyroxine Sodium (Synthroid) 88 mcg DAILY@06 PO 02/24/19 06:00 02/24/19 08:29 DC 02/24/19 06:16 Levothyroxine Sodium (Synthroid) 88 mcg DAILY@06 PO 02/25/19 06:00 02/25/19 06:04 Levothyroxine Sodium (Synthroid) 100 mcg DAILY@06 PO 02/16/19 06:00 02/17/19 07:55 DC 02/17/19 06:16 Lorazepam (Ativan) 1 mg Q2HP PRN PO AGITATION 02/21/19 09:15 02/24/19 13:20 DC Lorazepam (Ativan) 1 mg Q4HP PRN PO AGITATION 02/24/19 13:30 Lorazepam (Ativan) 2 mg Q2HP PRN PO SEVERE ANXIETY 02/15/19 16:30 02/21/19 09:06 DC 02/19/19 07:22 Magnesium Hydroxide (Milk Of Magnesia) 30 ml DAILYPRN PRN PO CONSTIPATION 02/15/19 16:30 Metformin HCl (Glucophage Xr) 500 mg DAILY@18 PO 02/16/19 18:00 02/24/19 17:09 Miscellaneous (Unresolved Clarification Entry) SEE LABEL COMMENTS DAILY XX 02/16/19 09:00 02/16/19 11:47 DC Olanzapine (ZyPREXA) 20 mg QHS PO 02/16/19 21:00 02/24/19 22:21 Ondansetron HCl (Zofran Odt) 4 mg Q6HP PRN SL NAUSEA OR VOMITING 02/24/19 11:00 02/24/19 11:06 Trazodone HCl (Desyrel) 50 mg QHSP PRN PO INSOMNIA 02/15/19 16:30 02/24/19 22:21 Allergies Coded Allergies: No Known Allergies (Verified , 01/23/19) HELIO NEWTON DO Feb 25, 2019 9:48 am
[2019-02-25] MEDS: levETIRAcetam 250MG TABLET (KEPPRA) PO SCH ×2 (10:00→21:34)
[2019-02-25] MEDS: DESMOPRESSIN ACETATE 0.1 MG TAB PO SCH ×3 (10:00→21:35)
[2019-02-25] MEDS: guanFACINE 1 MG TAB PO SCH ×2 (10:01→21:35)
[2019-02-25] MEDS: metFORMIN XR 500MG TAB *GLUCOPHAGE XR PO SCH (16:55)
[2019-02-25 18:00] VITALS: BP 100/61
[2019-02-25] MEDS: clonazePAM 1 MG TAB PO SCH (21:34)
[2019-02-25] MEDS: OLANZapine 10 MG TAB PO SCH (21:36)
[2019-02-25] MEDS: DIVALPROEX 500 MG TAB PO SCH (21:36)
[2019-02-26] MEDS: LEVOTHYROXINE 88MCG TABLET (0.088 MG) PO SCH (06:04)
[2019-02-26 06:46] VITALS: BP 115/71
[2019-02-26] MEDS: DESMOPRESSIN ACETATE 0.1 MG TAB PO SCH ×3 (09:39→20:49)
[2019-02-26] MEDS: levETIRAcetam 250MG TABLET (KEPPRA) PO SCH ×2 (09:39→20:50)
[2019-02-26] MEDS: guanFACINE 1 MG TAB PO SCH ×2 (09:39→20:50)
--- NOTE | 2019-02-26 10:31 | MHIPNPDOC ---
[facility] Progress Note Progress Note DATE OF SERVICE: 02/26/19 HISTORY: Patient is a 28 -year-old , male, with a history of autism, intellectual disability, agitation/aggression, last admit [facility] 2009 for agitation who was brought in on 9.49 from [facility] at [facility] for agitation, aggression toward his mother which seen in doctor's office earlier in the day that continued when mother took pt home and told doctor it had been going on for 1 month and getting worse per ED. When PD arrived to pt's home to pick it up he was agitation, yelling, and uncooperative that continued when pt in transport and in ER BHU per ED. In ED pt was throwing furniture, banging his head on the wall, yelling, refusing to answer questions and was given ativan to calm down once. Did state his mother and he have been "in each other's faces" arguing in ED. Per ED pt has not been going to [facility] for 1 month reason unknown. Pt thought to be a danger to his mother per ED as most of his anger and agitation are directed toward her. Pt is agitated, anxious, needs constant redirection, banging bolanos, attempting to elope, uncooperative with questioning this am so history gathered for hospital records. He is a very poor historian. VITAL SIGNS: See below. NEW TEST RESULTS: TSH 0.011 (very minor improvement), synthroid d/c by medicine, depakote level 89.5 (therapeutic) LFTs/CPK all wnl limits CURRENT MEDICATIONS: See below. MENTAL STATUS EXAMINATION: General Appearance: well groomed, ds/not appear stated age (younger), hospital scrubs/clothing, other (microcephaly) Build: average Demeanor: hostile, preoccupied, guarded, other (agitated), yelling at 1:1 sitter and throwing minor items in room, poor ability to follow redirection Eye Contact: poor Activity: agitated, anxious Behavior: redirectable but agitated, impulsive, aggressive, restless Speech: spontaneous, impoverished, other (yelling at times in frustration) Mood: dysthymic, less anxious, angry, irritable, other (agitated) Mood "Fuck you" Affect: inappropriate, labile, congruent, anxious, hostile, disorganized, other (agitated) Thought Process: concrete Thought Content (Delusions): denies SI, HI, AVH Thought Content (Other): autistic Thought Content (Aggressive): aggressive (assess), other (impulsive based on situation, no intent or plan) Perception (Hallucinations): none reported Perception (Other): none reported Cognition (Impairment of): unable to assess Cognition(Intelligence Est.): MR Oriented: Awake, Alert, Oriented times three Insight: poor Judgment: Poor Psychosis: Denies DIAGNOSES: Major depressive d/o recurrent, severe w/o psychosis r/o intermittent explosive d/o autistic spectrum disorder moderate-severe intellectual disability moderate-severe ASSESSMENT: Pt seen in his room while nurse attempting to take his bp which he was refusing, hit his head with his fist then on the wall at the top of his bed and stated "fuck you" to me. Per staff pt frequently less drowsy during day but is more agitated and irritable. He is redirectable per staff though. When up continues to be agitated although less with staff and less his mother is here visiting him then is more calm. Depakote level 89.9 and is therapeutic. TSH 0.0011 very low. Monitoring weekly for improvement. Staff to wake pt up periodically during the day to either walk in milieu or plan with toys mother brought for him (action figures) to help him. Attempted to play action figures with him yesterday but was not interested due to fatigue. Is compliant with all meds and more redirectable with staff. MANAGEMENT PLAN: continue 1:1 sitter for safety and redirection. Medications: depakote 1000mg qhs guanfacine 1mg bid ativan 1mg q2hr prn anxiety/agitation haldol 10mg q2hr prn agitation/aggression. Klonopin 1 MG QHS vistaril 50mg 2hr prn anxiety Desmopressin 0.1 MG BID, zyprexa 20mg QPM TIME SPENT: 30 minutes. Vital Signs Vital Signs Date Time Temp Pulse Resp B/P (MAP) Pulse Ox O2 Delivery O2 Flow Rate FiO2 02/26/19 06:46 97.2 75 14 115/71 (86) Laboratory Data 24H Labs Laboratory Tests 2 02/26/19 06:07: Bedside Glucose (Misc Panel) 147H Current Medications Current Medications Medications (Trade) Dose Ordered Sig/Anya Route PRN Reason Start Time Stop Time Status Last Admin Dose Admin Al Hydrox/Mg Hydrox/Simethicone (Mylanta) 30 ml Q4HP PRN PO HEARTBURN/INDIGESTION 02/15/19 16:30 02/22/19 05:31 Clonazepam (KlonoPIN) 1 mg QHS PO 02/20/19 21:00 02/25/19 21:34 Clonazepam (KlonoPIN) 2 mg QHS PO 02/16/19 21:00 02/20/19 17:05 DC 02/19/19 21:49 Desmopressin Acetate (Ddavp) 0.1 mg BID PO 02/16/19 21:00 02/16/19 21:00 DC Desmopressin Acetate (Ddavp) 0.1 mg TID PO 02/16/19 09:00 02/25/19 21:35 Dextrose (Dextrose 50%) 25 ml ASDIRECTED PRN IV SEE LABEL COMMENTS 02/16/19 11:15 Diphenhydramine HCl (Benadryl) 50 mg Q2HP PRN PO SEVERE ANXIETY/AGITATION 02/15/19 16:30 02/24/19 13:20 DC 02/23/19 23:02 Diphenhydramine HCl (Benadryl) 50 mg Q4HP PRN PO SEVERE ANXIETY/AGITATION 02/24/19 13:30 Divalproex Sodium (Depakote) 500 mg BID PO 02/16/19 21:00 02/24/19 09:31 DC 02/23/19 21:56 Divalproex Sodium (Depakote) 1,000 mg QHS PO 02/24/19 21:00 02/25/19 21:36 Glucagon (Glucagon) 1 mg ASDIRECTED PRN SC SEE LABEL COMMENTS 02/16/19 11:15 Glucose (Glucose) 16 GM ASDIRECTED PRN PO SEE LABEL COMMENTS 02/16/19 11:15 Guanfacine HCl (Tenex) 1 mg BID PO 02/16/19 21:00 02/25/19 21:35 Haloperidol (Haldol) 5 mg Q2HP PRN PO SEVERE ANXIETY/AGITATION 02/15/19 16:30 02/16/19 09:54 DC 02/16/19 09:40 Haloperidol (Haldol) 5 mg QID PO 02/16/19 13:00 02/24/19 09:31 DC 02/23/19 21:57 Haloperidol (Haldol) 10 mg Q4HP PRN PO AGITATION 02/16/19 10:00 02/17/19 20:43 Home Med (Med Rec Complete!) ASDIRECTED XX 02/16/19 11:30 02/16/19 11:30 DC Hydroxyzine HCl (Atarax) 50 mg Q4HP PRN PO ANXIETY/AGITATION 02/16/19 10:45 02/17/19 20:43 Levetiracetam (Keppra) 750 mg BID PO 02/16/19 21:00 02/25/19 21:34 Levothyroxine Sodium (Synthroid) 88 mcg DAILY@06 PO 02/24/19 06:00 02/24/19 08:29 DC 02/24/19 06:16 Levothyroxine Sodium (Synthroid) 88 mcg DAILY@06 PO 02/25/19 06:00 02/26/19 06:04 Levothyroxine Sodium (Synthroid) 100 mcg DAILY@06 PO 02/16/19 06:00 02/17/19 07:55 DC 02/17/19 06:16 Lorazepam (Ativan) 1 mg Q2HP PRN PO AGITATION 02/21/19 09:15 02/24/19 13:20 DC Lorazepam (Ativan) 1 mg Q4HP PRN PO AGITATION 02/24/19 13:30 Lorazepam (Ativan) 2 mg Q2HP PRN PO SEVERE ANXIETY 02/15/19 16:30 02/21/19 09:06 DC 02/19/19 07:22 Magnesium Hydroxide (Milk Of Magnesia) 30 ml DAILYPRN PRN PO CONSTIPATION 02/15/19 16:30 Metformin HCl (Glucophage Xr) 500 mg DAILY@18 PO 02/16/19 18:00 02/25/19 16:55 Miscellaneous (Unresolved Clarification Entry) SEE LABEL COMMENTS DAILY XX 02/16/19 09:00 02/16/19 11:47 DC Olanzapine (ZyPREXA) 20 mg QHS PO 02/16/19 21:00 02/25/19 21:36 Ondansetron HCl (Zofran Odt) 4 mg Q6HP PRN SL NAUSEA OR VOMITING 02/24/19 11:00 02/24/19 11:06 Trazodone HCl (Desyrel) 50 mg QHSP PRN PO INSOMNIA 02/15/19 16:30 02/24/19 22:21 Allergies Coded Allergies: No Known Allergies (Verified , 01/23/19) HELIO NEWTON DO Feb 26, 2019 9:00 am
[2019-02-26 10:34] VITALS: BP 115/71
[2019-02-26] MEDS: HALOPERIDOL 10 MG TAB PO PRN (10:57)
[2019-02-26] MEDS: metFORMIN XR 500MG TAB *GLUCOPHAGE XR PO SCH (17:49)
[2019-02-26 18:11] VITALS: BP 122/65
[2019-02-26] MEDS: MAALOX 30 ML SUSP *UDC PO PRN (18:45)
[2019-02-26] MEDS: DIVALPROEX 500 MG TAB PO SCH (20:49)
[2019-02-26] MEDS: clonazePAM 1 MG TAB PO SCH (20:50)
[2019-02-26] MEDS: OLANZapine 10 MG TAB PO SCH (20:50)
[2019-02-27] MEDS: LEVOTHYROXINE 88MCG TABLET (0.088 MG) PO SCH (06:01)
[2019-02-27 06:54] VITALS: BP 103/55
[2019-02-27] MEDS: DESMOPRESSIN ACETATE 0.1 MG TAB PO SCH ×3 (08:05→20:31)
[2019-02-27] MEDS: levETIRAcetam 250MG TABLET (KEPPRA) PO SCH ×2 (08:06→20:30)
[2019-02-27] MEDS: guanFACINE 1 MG TAB PO SCH ×2 (08:06→20:31)
[2019-02-27] MEDS: metFORMIN XR 500MG TAB *GLUCOPHAGE XR PO SCH (17:28)
[2019-02-27 18:00] VITALS: BP 114/70
[2019-02-27] MEDS: clonazePAM 1 MG TAB PO SCH (20:31)
[2019-02-27] MEDS: OLANZapine 10 MG TAB PO SCH (20:31)
[2019-02-27] MEDS: DIVALPROEX 500 MG TAB PO SCH (20:32)
[2019-02-28] MEDS: diphenhydrAMINE 50 MG CAP PO PRN ×2 (03:06→19:37)
[2019-02-28] MEDS: HALOPERIDOL 10 MG TAB PO PRN ×2 (03:06→19:13)
[2019-02-28] MEDS: LEVOTHYROXINE 88MCG TABLET (0.088 MG) PO SCH (05:36)
[2019-02-28] MEDS: hydrOXYzine 50 MG TAB PO PRN ×2 (05:36→11:26)
[2019-02-28 06:39] VITALS: BP 115/66
[2019-02-28] MEDS: levETIRAcetam 250MG TABLET (KEPPRA) PO SCH ×2 (07:58→19:46)
[2019-02-28] MEDS: guanFACINE 1 MG TAB PO SCH ×2 (07:58→20:04)
[2019-02-28] MEDS: DESMOPRESSIN ACETATE 0.1 MG TAB PO SCH ×3 (07:58→19:46)
[2019-02-28] MEDS: metFORMIN XR 500MG TAB *GLUCOPHAGE XR PO SCH (17:19)
[2019-02-28 18:00] VITALS: BP 118/78
[2019-02-28] MEDS ORDERED: LORazepam 2 MG TAB PO STA (19:30)
[2019-02-28] MEDS ORDERED: HALOPERIDOL 10 MG TAB PO STA (19:30)
[2019-02-28] MEDS: DIVALPROEX 500 MG TAB PO SCH (19:46)
[2019-02-28 20:04] VITALS: BP 95/54
[2019-03-01] MEDS: clonazePAM 1 MG TAB PO SCH ×2 (00:32→20:24)
[2019-03-01] MEDS: OLANZapine 10 MG TAB PO SCH ×2 (00:33→20:24)
[2019-03-01] MEDS: LORazepam 1 MG TAB PO PRN (04:22)
[2019-03-01] MEDS: HALOPERIDOL 10 MG TAB PO PRN (04:22)
[2019-03-01] MEDS: diphenhydrAMINE 50 MG CAP PO PRN (04:22)
[2019-03-01 05:58] VITALS: BP 108/62
[2019-03-01] MEDS: DESMOPRESSIN ACETATE 0.1 MG TAB PO SCH ×3 (08:19→20:24)
[2019-03-01] MEDS: guanFACINE 1 MG TAB PO SCH ×2 (08:19→20:24)
[2019-03-01] MEDS: levETIRAcetam 250MG TABLET (KEPPRA) PO SCH ×2 (08:19→20:24)
[2019-03-01] MEDS: LEVOTHYROXINE 88MCG TABLET (0.088 MG) PO SCH (08:20)
--- NOTE | 2019-03-01 10:21 | MHIPNPDOC ---
[facility] Progress Note Progress Note DATE OF SERVICE: 03/01/19 HISTORY: Patient is a 28 -year-old , male, with a history of autism, intellectual disability, agitation/aggression, last admit [facility] 2009 for gerry nassar who was brought in on 9.49 from [employer] at [facility] for agitation, aggression toward his mother which seen in doctor's office earlier in the day that continued when mother took pt home and told doctor it had been going on for 1 month and getting worse per ED. When PD arrived to pt's home to pick it up he was agitation, yelling, and uncooperative that continued when pt in transport and in ER BHU per ED. In ED pt was throwing furniture, banging his head on the wall, yelling, refusing to answer questions and was given ativan to calm down once. Did state his mother and he have been "in each other's faces" arguing in ED. Per ED pt has not been going to [facility] for 1 month reason unknown. Pt thought to be a danger to his mother per ED as most of his anger and agitation are directed toward her. Pt is agitated, anxious, needs constant redirection, banging bolanos, attempting to elope, uncooperative with questioning this am so history gathered for hospital records. He is a very poor historian. VITAL SIGNS: See below. NEW TEST RESULTS: TSH 0.011 (very minor improvement), synthroid d/c by medicine, depakote level 89.5 (therapeutic) LFTs/CPK all wnl limits CURRENT MEDICATIONS: See below. MENTAL STATUS EXAMINATION: General Appearance: well groomed, ds/not appear stated age (younger), hospital scrubs/clothing, other (microcephaly) Build: average Demeanor: overall less hostile, preoccupied, guarded, other (agitated), yelling at 1:1 sitter and follows redirection. agitation appears worse when mother leaving from visiting pt and frequently asks for her here Eye Contact: poor Activity: less agitated, anxious Behavior: redirectable and less agitated, impulsive, aggressive, restless Speech: spontaneous, impoverished, other (yelling at times in frustration) Mood: dysthymic, less anxious, angry, irritable, other (agitated) Mood "I want my mom" Affect: inappropriate, labile, congruent, anxious, hostile, disorganized, other (agitated) Thought Process: concrete Thought Content (Delusions): denies SI, HI, AVH Thought Content (Other): autistic Thought Content (Aggressive): less aggressive (assess), other (impulsive based on situation, no intent or plan) Perception (Hallucinations): none reported Perception (Other): none reported Cognition (Impairment of): unable to assess Cognition(Intelligence Est.): MR Oriented: Awake, Alert, Oriented times three Insight: poor Judgment: Poor Psychosis: Denies DIAGNOSES: Major depressive d/o recurrent, severe w/o psychosis r/o intermittent explosive d/o autistic spectrum disorder moderate-severe intellectual disability moderate-severe ASSESSMENT: Pt seen in his room and currently asleep. Per staff pt became agitated after his mother left from visiting hours over the weekend and ran down milieu to exit door and threw himself to the floor. Pt was able to be redirected by staff and took prn medication and calmed down. Pt, per staff, less sedated during the day. Pt frequently asks for his mother on the unit that he appears to miss and since pt agitaion appears limited to missing his mother and home will speak with mother about d/c the pt to her later this week where given his cognitive age and MR/Autism would mostly like do better there under her care. He is redirectable per staff though. When up continues to be agitated although less with staff and less when his mother is here visiting him then is more calm. Depakote level 89.9 and is therapeutic. TSH 0.0011 very low. Monitoring weekly for improvement. Staff to wake pt up periodically during the day to either walk in milieu or plan with toys mother brought for him (action figures) to help him. Is compliant with all meds and more redirectable with staff. MANAGEMENT PLAN: continue 1:1 sitter for safety and redirection. Possible d/c home to his mother's care later this week. Medications: depakote 1000mg qhs guanfacine 1mg bid ativan 1mg q2hr prn anxiety/agitation haldol 10mg q2hr prn agitation/aggression. Klonopin 1 MG QHS vistaril 50mg 2hr prn anxiety Desmopressin 0.1 MG BID, zyprexa 20mg QPM TIME SPENT: 30 minutes. Vital Signs Vital Signs Date Time Temp Pulse Resp B/P (MAP) Pulse Ox O2 Delivery O2 Flow Rate FiO2 03/01/19 09:10 Room Air 03/01/19 05:58 97.5 60 14 108/62 (77) 02/26/19 10:34 99 Laboratory Data 24H Labs Laboratory Tests 2 02/28/19 17:18: Bedside Glucose (Misc Panel) 222H 03/01/19 05:51: Bedside Glucose (Misc Panel) 103 Current Medications Current Medications Medications (Trade) Dose Ordered Sig/Naya Route PRN Reason Start Time Stop Time Status Last Admin Dose Admin Al Hydrox/Mg Hydrox/Simethicone (Mylanta) 30 ml Q4HP PRN PO HEARTBURN/INDIGESTION 02/15/19 16:30 02/26/19 18:45 Clonazepam (KlonoPIN) 1 mg QHS PO 02/20/19 21:00 03/01/19 00:32 Clonazepam (KlonoPIN) 2 mg QHS PO 02/16/19 21:00 02/20/19 17:05 DC 02/19/19 21:49 Desmopressin Acetate (Ddavp) 0.1 mg BID PO 02/16/19 21:00 02/16/19 21:00 DC Desmopressin Acetate (Ddavp) 0.1 mg TID PO 02/16/19 09:00 03/01/19 08:19 Dextrose (Dextrose 50%) 25 ml ASDIRECTED PRN IV SEE LABEL COMMENTS 02/16/19 11:15 Diphenhydramine HCl (Benadryl) 50 mg Q2HP PRN PO SEVERE ANXIETY/AGITATION 02/15/19 16:30 02/24/19 13:20 DC 02/23/19 23:02 Diphenhydramine HCl (Benadryl) 50 mg Q4HP PRN PO SEVERE ANXIETY/AGITATION 02/24/19 13:30 03/01/19 04:22 Divalproex Sodium (Depakote) 500 mg BID PO 02/16/19 21:00 02/24/19 09:31 DC 02/23/19 21:56 Divalproex Sodium (Depakote) 1,000 mg QHS PO 02/24/19 21:00 02/28/19 19:46 Glucagon (Glucagon) 1 mg ASDIRECTED PRN SC SEE LABEL COMMENTS 02/16/19 11:15 Glucose (Glucose) 16 GM ASDIRECTED PRN PO SEE LABEL COMMENTS 02/16/19 11:15 Guanfacine HCl (Tenex) 1 mg BID PO 02/16/19 21:00 03/01/19 08:19 Haloperidol (Haldol) 5 mg Q2HP PRN PO SEVERE ANXIETY/AGITATION 02/15/19 16:30 02/16/19 09:54 DC 02/16/19 09:40 Haloperidol (Haldol) 5 mg QID PO 02/16/19 13:00 02/24/19 09:31 DC 02/23/19 21:57 Haloperidol (Haldol) 10 mg Q4HP PRN PO AGITATION 02/16/19 10:00 03/01/19 04:22 Haloperidol (Haldol) 10 mg STAT STAT PO 02/28/19 19:30 02/28/19 19:33 DC 02/28/19 19:37 Home Med (Med Rec Complete!) ASDIRECTED XX 02/16/19 11:30 02/16/19 11:30 DC Hydroxyzine HCl (Atarax) 50 mg Q4HP PRN PO ANXIETY/AGITATION 02/16/19 10:45 02/28/19 11:26 Levetiracetam (Keppra) 750 mg BID PO 02/16/19 21:00 03/01/19 08:19 Levothyroxine Sodium (Synthroid) 88 mcg DAILY@06 PO 02/24/19 06:00 02/24/19 08:29 DC 02/24/19 06:16 Levothyroxine Sodium (Synthroid) 88 mcg DAILY@06 PO 02/25/19 06:00 03/01/19 08:20 Levothyroxine Sodium (Synthroid) 100 mcg DAILY@06 PO 02/16/19 06:00 02/17/19 07:55 DC 02/17/19 06:16 Lorazepam (Ativan) 1 mg Q2HP PRN PO AGITATION 02/21/19 09:15 02/24/19 13:20 DC Lorazepam (Ativan) 1 mg Q4HP PRN PO AGITATION 02/24/19 13:30 03/01/19 04:22 Lorazepam (Ativan) 2 mg Q2HP PRN PO SEVERE ANXIETY 02/15/19 16:30 02/21/19 09:06 DC 02/19/19 07:22 Lorazepam (Ativan) 2 mg STAT STAT PO 02/28/19 19:30 02/28/19 19:33 DC 02/28/19 19:37 Magnesium Hydroxide (Milk Of Magnesia) 30 ml DAILYPRN PRN PO CONSTIPATION 02/15/19 16:30 Metformin HCl (Glucophage Xr) 500 mg DAILY@18 PO 02/16/19 18:00 02/28/19 17:19 Miscellaneous (Unresolved Clarification Entry) SEE LABEL COMMENTS DAILY XX 02/16/19 09:00 02/16/19 11:47 DC Miscellaneous (Unresolved Clarification Entry) SEE LABEL COMMENTS DAILY XX 02/27/19 09:00 02/27/19 14:01 DC Miscellaneous (Unresolved Clarification Entry) SEE LABEL COMMENTS DAILY XX 02/26/19 09:00 02/27/19 07:24 DC Olanzapine (ZyPREXA) 20 mg QHS PO 02/16/19 21:00 03/01/19 00:33 Ondansetron HCl (Zofran Odt) 4 mg Q6HP PRN SL NAUSEA OR VOMITING 02/24/19 11:00 02/24/19 11:06 Trazodone HCl (Desyrel) 50 mg QHSP PRN PO INSOMNIA 02/15/19 16:30 02/24/19 22:21 Allergies Coded Allergies: No Known Allergies (Verified , 01/23/19) HELIO NEWTON DO Mar 01, 2019 9:12 am
[2019-03-01] MEDS: metFORMIN XR 500MG TAB *GLUCOPHAGE XR PO SCH (17:39)
[2019-03-01 18:19] VITALS: BP 107/60
[2019-03-01] MEDS: DIVALPROEX 500 MG TAB PO SCH (20:24)
[2019-03-02] MEDS: diphenhydrAMINE 50 MG CAP PO PRN ×2 (01:45→08:27)
[2019-03-02] MEDS: HALOPERIDOL 10 MG TAB PO PRN (01:45)
[2019-03-02] MEDS: LORazepam 1 MG TAB PO PRN (01:45)
[2019-03-02 06:50] VITALS: BP 100/55
[2019-03-02] MEDS: DESMOPRESSIN ACETATE 0.1 MG TAB PO SCH ×3 (08:27→21:51)
[2019-03-02] MEDS: guanFACINE 1 MG TAB PO SCH ×2 (08:27→21:51)
[2019-03-02] MEDS: hydrOXYzine 50 MG TAB PO PRN (08:27)
[2019-03-02] MEDS: levETIRAcetam 250MG TABLET (KEPPRA) PO SCH ×2 (08:27→21:51)
--- NOTE | 2019-03-02 10:05 | MHIPNPDOC ---
[facility] Progress Note Progress Note DATE OF SERVICE: 03/02/19 HISTORY: Patient is a 28 -year-old , male, with a history of autism, intellectual disability, agitation/aggression, last admit [facility] 2009 for gerry nassar who was brought in on 9.49 from [facility] at [facility] for agitation, aggression toward his mother which seen in doctor's office earlier in the day that continued when mother took pt home and told doctor it had been going on for 1 month and getting worse per ED. When PD arrived to pt's home to pick it up he was agitation, yelling, and uncooperative that continued when pt in transport and in ER BHU per ED. In ED pt was throwing furniture, banging his head on the wall, yelling, refusing to answer questions and was given ativan to calm down once. Did state his mother and he have been "in each other's faces" arguing in ED. Per ED pt has not been going to [facility] for 1 month reason unknown. Pt thought to be a danger to his mother per ED as most of his anger and agitation are directed toward her. Pt is agitated, anxious, needs constant redirection, banging bolanos, attempting to elope, uncooperative with questioning this am so history gathered for hospital records. He is a very poor historian. VITAL SIGNS: See below. NEW TEST RESULTS: TSH 0.011 (very minor improvement), synthroid d/c by medicine, depakote level 89.5 (therapeutic) LFTs/CPK all wnl limits CURRENT MEDICATIONS: See below. MENTAL STATUS EXAMINATION: General Appearance: well groomed, ds/not appear stated age (younger), hospital scrubs/clothing, other (microcephaly) Build: average Demeanor: overall less hostile, preoccupied, guarded, other (agitated), yelling at 1:1 sitter and follows redirection. agitation appears worse when mother leaving from visiting pt and frequently asks for her here Eye Contact: poor Activity: less agitated, anxious Behavior: redirectable and less agitated, impulsive, aggressive, redirectable Speech: spontaneous, impoverished, other (yelling at times in frustration) Mood: dysthymic, less anxious, angry, irritable, other (agitated) Mood "I'm fucking board... I want to go home" Affect: inappropriate, labile, congruent, anxious, hostile, disorganized, other (agitated) Thought Process: concrete Thought Content (Delusions): denies SI, HI, AVH Thought Content (Other): autistic Thought Content (Aggressive): less aggressive (assess), other (impulsive based on situation, no intent or plan) Perception (Hallucinations): none reported Perception (Other): none reported Cognition (Impairment of): unable to assess Cognition(Intelligence Est.): MR Oriented: Awake, Alert, Oriented times three Insight: poor Judgment: Poor Psychosis: Denies DIAGNOSES: Major depressive d/o recurrent, severe w/o psychosis r/o intermittent explosive d/o autistic spectrum disorder moderate-severe intellectual disability moderate-severe ASSESSMENT: Pt seen in milieu agitated banging head on wall upset that he couldn't get a hold of his mother on the phone. Staff redirecting pt. Spoke with pt and states he misses his mom and wants to go home. Told staff he's "fucking board" here. Agitation mostly driven by being bored, homesick, and missing his mother as is always better and no agitated when his mother's here for visiting hours daily. Pt given prn benadryl and ativan for agitation. Pt no longer sedated during the day after meds adjusted and he is tolerating them well. Depakote level 89.9 and is therapeutic. TSH 0.0011 very low. Monitoring weekly for improvement. Is compliant with all meds and more redirectable with staff. MANAGEMENT PLAN: continue 1:1 sitter for safety and redirection. Possible d/c home to his mother's care later this week as appears baseline status. Medications: depakote 1000mg qhs guanfacine 1mg bid ativan 1mg q2hr prn anxiety/agitation haldol 10mg q2hr prn agitation/aggression. Klonopin 1 MG QHS vistaril 50mg 2hr prn anxiety Desmopressin 0.1 MG BID, zyprexa 20mg QPM TIME SPENT: 30 minutes. Vital Signs Vital Signs Date Time Temp Pulse Resp B/P (MAP) Pulse Ox O2 Delivery O2 Flow Rate FiO2 03/02/19 09:09 Room Air 03/02/19 08:27 100/55 03/02/19 06:50 97.8 82 14 02/26/19 10:34 99 Laboratory Data 24H Labs Laboratory Tests 2 03/01/19 17:18: Bedside Glucose (Misc Panel) 187H 03/02/19 06:03: Bedside Glucose (Misc Panel) 139H Current Medications Current Medications Medications (Trade) Dose Ordered Sig/Naya Route PRN Reason Start Time Stop Time Status Last Admin Dose Admin Al Hydrox/Mg Hydrox/Simethicone (Mylanta) 30 ml Q4HP PRN PO HEARTBURN/INDIGESTION 02/15/19 16:30 02/26/19 18:45 Clonazepam (KlonoPIN) 1 mg QHS PO 02/20/19 21:00 03/01/19 20:24 Clonazepam (KlonoPIN) 2 mg QHS PO 02/16/19 21:00 02/20/19 17:05 DC 02/19/19 21:49 Desmopressin Acetate (Ddavp) 0.1 mg BID PO 02/16/19 21:00 02/16/19 21:00 DC Desmopressin Acetate (Ddavp) 0.1 mg TID PO 02/16/19 09:00 03/02/19 08:27 Dextrose (Dextrose 50%) 25 ml ASDIRECTED PRN IV SEE LABEL COMMENTS 02/16/19 11:15 Diphenhydramine HCl (Benadryl) 50 mg Q2HP PRN PO SEVERE ANXIETY/AGITATION 02/15/19 16:30 02/24/19 13:20 DC 02/23/19 23:02 Diphenhydramine HCl (Benadryl) 50 mg Q4HP PRN PO SEVERE ANXIETY/AGITATION 02/24/19 13:30 03/02/19 08:27 Divalproex Sodium (Depakote) 500 mg BID PO 02/16/19 21:00 02/24/19 09:31 DC 02/23/19 21:56 Divalproex Sodium (Depakote) 1,000 mg QHS PO 02/24/19 21:00 03/01/19 20:24 Glucagon (Glucagon) 1 mg ASDIRECTED PRN SC SEE LABEL COMMENTS 02/16/19 11:15 Glucose (Glucose) 16 GM ASDIRECTED PRN PO SEE LABEL COMMENTS 02/16/19 11:15 Guanfacine HCl (Tenex) 1 mg BID PO 02/16/19 21:00 03/02/19 08:27 Haloperidol (Haldol) 5 mg Q2HP PRN PO SEVERE ANXIETY/AGITATION 02/15/19 16:30 02/16/19 09:54 DC 02/16/19 09:40 Haloperidol (Haldol) 5 mg QID PO 02/16/19 13:00 02/24/19 09:31 DC 02/23/19 21:57 Haloperidol (Haldol) 10 mg Q4HP PRN PO AGITATION 02/16/19 10:00 03/02/19 01:45 Haloperidol (Haldol) 10 mg STAT STAT PO 02/28/19 19:30 02/28/19 19:33 DC 02/28/19 19:37 Home Med (Med Rec Complete!) ASDIRECTED XX 02/16/19 11:30 02/16/19 11:30 DC Hydroxyzine HCl (Atarax) 50 mg Q4HP PRN PO ANXIETY/AGITATION 02/16/19 10:45 03/02/19 08:27 Levetiracetam (Keppra) 750 mg BID PO 02/16/19 21:00 03/02/19 08:27 Levothyroxine Sodium (Synthroid) 88 mcg DAILY@06 PO 02/24/19 06:00 02/24/19 08:29 DC 02/24/19 06:16 Levothyroxine Sodium (Synthroid) 88 mcg DAILY@06 PO 02/25/19 06:00 03/01/19 10:13 DC 03/01/19 08:20 Levothyroxine Sodium (Synthroid) 100 mcg DAILY@06 PO 02/16/19 06:00 02/17/19 07:55 DC 02/17/19 06:16 Lorazepam (Ativan) 1 mg Q2HP PRN PO AGITATION 02/21/19 09:15 02/24/19 13:20 DC Lorazepam (Ativan) 1 mg Q4HP PRN PO AGITATION 02/24/19 13:30 03/02/19 01:45 Lorazepam (Ativan) 2 mg Q2HP PRN PO SEVERE ANXIETY 02/15/19 16:30 02/21/19 09:06 DC 02/19/19 07:22 Lorazepam (Ativan) 2 mg STAT STAT PO 02/28/19 19:30 02/28/19 19:33 DC 02/28/19 19:37 Magnesium Hydroxide (Milk Of Magnesia) 30 ml DAILYPRN PRN PO CONSTIPATION 02/15/19 16:30 Metformin HCl (Glucophage Xr) 500 mg DAILY@18 PO 02/16/19 18:00 03/01/19 17:39 Miscellaneous (Unresolved Clarification Entry) SEE LABEL COMMENTS DAILY XX 02/16/19 09:00 02/16/19 11:47 DC Miscellaneous (Unresolved Clarification Entry) SEE LABEL COMMENTS DAILY XX 02/27/19 09:00 02/27/19 14:01 DC Miscellaneous (Unresolved Clarification Entry) SEE LABEL COMMENTS DAILY XX 02/26/19 09:00 02/27/19 07:24 DC Olanzapine (ZyPREXA) 20 mg QHS PO 02/16/19 21:00 03/01/19 20:24 Ondansetron HCl (Zofran Odt) 4 mg Q6HP PRN SL NAUSEA OR VOMITING 02/24/19 11:00 02/24/19 11:06 Trazodone HCl (Desyrel) 50 mg QHSP PRN PO INSOMNIA 02/15/19 16:30 02/24/19 22:21 Allergies Coded Allergies: No Known Allergies (Verified , 01/23/19) HELIO NEWTON DO Mar 02, 2019 10:05 am
[2019-03-02] MEDS: metFORMIN XR 500MG TAB *GLUCOPHAGE XR PO SCH (17:33)
[2019-03-02 17:54] VITALS: BP 89/57
[2019-03-02 18:00] VITALS: BP 89/57
[2019-03-02] MEDS: OLANZapine 10 MG TAB PO SCH (21:49)
[2019-03-02] MEDS: DIVALPROEX 500 MG TAB PO SCH (21:50)
[2019-03-02] MEDS: clonazePAM 1 MG TAB PO SCH (21:51)
[2019-03-03] MEDS: diphenhydrAMINE 50 MG CAP PO PRN (00:32)
[2019-03-03 06:55] VITALS: BP 102/67
[2019-03-03 08:18] VITALS: BP 102/67
[2019-03-03] MEDS: DESMOPRESSIN ACETATE 0.1 MG TAB PO SCH (08:18)
[2019-03-03] MEDS: levETIRAcetam 250MG TABLET (KEPPRA) PO SCH (08:18)
[2019-03-03] MEDS: guanFACINE 1 MG TAB PO SCH (08:18)
[2019-03-03] MEDS ORDERED: DEPA1TAB3 PO (09:40)
[2019-03-03] MEDS ORDERED: DESM0.1T2 PO (09:40)
[2019-03-03] MEDS ORDERED: GUAN1TA PO (09:40)
[2019-03-03] MEDS ORDERED: OLAN20TA14 PO (09:40)
[2019-03-03] MEDS ORDERED: HYDR50TA70 PO (09:40)
--- NOTE | 2019-03-03 09:41 | MHDSPDOC ---
[facility] Discharge Summary Discharge Summary DATE OF ADMISSION: Feb 15, 2019 at 4:23 pm DATE OF DISCHARGE: Mar 03, 2019 DISCHARGE DIAGNOSES: Major depressive d/o recurrent, severe w/o psychosis r/o intermittent explosive d/o autistic spectrum disorder moderate-severe intellectual disability moderate-severe REASON FOR ADMISSION: Patient is a 28 -year-old , male, with a history of autism, intellectual disability, agitation/aggression, last admit [facility] 2009 for agitation who was brought in on 9.49 from [facility] for agitation, aggression toward his mother which seen in doctor's office earlier in the day that continued when mother took pt home and told doctor it had been going on for 1 month and getting worse per ED. When PD arrived to pt's home to pick it up he was agitation, yelling, and uncooperative that continued when pt in transport and in ER [facility] per ED. In ED pt was throwing furniture, banging his head on the wall, yelling, refusing to answer questions and was given ativan to calm down once. Did state his mother and he have been "in each other's faces" arguing in ED. Per ED pt has not [facility] reason unknown. Pt thought to be a danger to his mother per ED as most of his anger and agitation are directed toward her. Pt is agitated, anxious, needs constant redirection, banging bolanos, attempting to elope, uncooperative with questioning this am so history gathered for hospital records. He is a very poor historian. CONSULTANTS INVOLVED: medicine regarding hyperthyroidism to manage synthroid TEST RESULTS: TSH 0.011 (very minor improvement), synthroid d/c by medicine, depakote level 89.5 (therapeutic) LFTs/CPK all wnl limits TREATMENT AND PROGRESS ON THE UNIT : Pt was admitted to [facility], seen for psychiatric assessment and started on depakote 500mg bid that caused daytime sedation so changed to 1000mg qhs and zyprexa increased to 20mg qhs for agitation at night. He continued on his outpatient guanfacine 1mg bid, klonopin decreased to 1mg qhs, and desmopressin 0.1mg tid. He was provided vistaril 50mg q2hr prn anxiety/agitation, benadryl 50mg q2hr anxiety/agitation, haldol 10mg q4hr prn anxiety agitation, ativan decreased to 1mg q4hr prn anxiety/agitation. Pt required less and less with ongoing treatment of mood/agitation and hyperthyroidism to only once a day mostly the days prior to d/c. Pt found his medications beneficial and tolerated them well. He did not attended groups during his stay due to his inability to participate and understand. His mother brought him toy action figures to play with on the unit from home which he liked. His symptoms improved to baseline with treatment. On day of discharge he denied He was discharged home to care of mother with follow-up at [facility] with Dr. Galvan. He felt safe for discharge. DISCHARGE ASSESSMENT: Pt seen in milieu very excited to go home with his mother today and per staff has been up since 1am waiting for her to come and take him home. He appears to be at his baseline status, tolerating his medications and they appear beneficial, is redirectable with staff and his mother when she visits him. His emotions and behavior are very improved when ever his mother is visiting him and should continue with him going home with her. MENTAL STATUS EXAMINATION ON DISCHARGE: General Appearance: well groomed, ds/not appear stated age (younger), hospital scrubs/clothing, other (microcephaly) Build: average Demeanor: overall less hostile, preoccupied, guarded, other (agitated), yelling at 1:1 sitter and follows redirection. agitation appears worse when mother leaving from visiting pt and frequently asks for her here Eye Contact: poor Activity: less agitated, anxious Behavior: redirectable and less agitated, impulsive, aggressive, redirectable Speech: spontaneous, impoverished, other (yelling at times in frustration) Mood: excited to go home, anxious, reactive Mood "I'm going home" Affect: inappropriate, labile, congruent, anxious, disorganized Thought Process: concrete Thought Content (Delusions): denies SI, HI, AVH Thought Content (Other): autistic Thought Content (Aggressive): less aggressive (assess), other (impulsive based on situation, no intent or plan) Perception (Hallucinations): none reported Perception (Other): none reported Cognition (Impairment of): unable to assess Cognition(Intelligence Est.): MR Oriented: Awake, Alert, Oriented times three Insight: poor Judgment: Poor Psychosis: Denies MEDICATIONS ON DISCHARGE: depakote 1000mg qhs guanfacine 1mg bid Klonopin 1 MG QHS vistaril 50mg tid prn anxiety Desmopressin 0.1 MG tid zyprexa 20mg QPM PLAN/FOLLOWUP ARRANGEMENTS: D/c home to care of mother with follow-up at [facility] with Dr. Galvan The amount of time spent in the coordination of care for this patient was approximately 30 minutes. Vital Signs/I&Os Vital Signs Date Time Temp Pulse Resp B/P (MAP) Pulse Ox O2 Delivery O2 Flow Rate FiO2 03/03/19 08:18 102/67 03/03/19 06:55 96.3 82 18 03/02/19 09:09 Room Air 02/26/19 10:34 99 Laboratory Data Labs 24H Laboratory Tests 2 03/02/19 16:27: Bedside Glucose (Misc Panel) 195H 03/03/19 06:09: Bedside Glucose (Misc Panel) 204H Medications Scheduled Clonazepam (Clonazepam) 2 Mg Tablet, 2 MG PO QHS for . , (Reported) Desmopressin Acetate (Desmopressin Acetate) 0.1 Mg Tab, 0.1 MG PO TID for . , (Reported) Ergocalciferol (Vitamin D2) (Vitamin D2) 50,000 Unit Capsule, 50,000 UNIT PO QWEEK for . , (Reported) Levetiracetam (Levetiracetam) 750 Mg Tab, 750 MG PO BID for . , (Reported) Levothyroxine Sodium (Levothyroxine Sodium) 100 Mcg Tab, 100 MCG PO DAILY for . , (Reported) Metformin HCl (Metformin HCl ER) 500 Mg Tab, 1,500 MG PO DAILY for . , (Reported) Olanzapine (Olanzapine) 20 Mg Tablet, 20 MG PO QPM for . , (Reported) Ranitidine HCl (Ranitidine HCl) 150 Mg Tablet, 1 TAB PO QHS for . , (Reported) Scheduled PRN Hydroxyzine HCl (Hydroxyzine HCl) 50 Mg Tablet, 50 MG PO Q6H PRN for ANXIETY, (Reported) Lorazepam (Ativan) 0.5 Mg Tablet, 0.5 MG PO BID PRN for SEVERE ANXIETY/AGITATION, (Reported) Allergies Coded Allergies: No Known Allergies (Verified , 01/23/19) HELIO NEWTON DO Mar 03, 2019 9:41 am
== END 2019-03-03 09:49 | disposition home or self-care (01) | DRG 751 ==
LOC: M ED 13:32 → M ED INP 16:23 → M PSY 17:21
PROVIDERS: ADMIT Psychiatry & Neurology Addiction Medicine; ATTEND Psychiatry & Neurology Psychiatry
DX: F33.2 Major depressive disorder, recurrent severe without psychotic features (principal); F72 Severe intellectual disabilities; E11.9 Type 2 diabetes mellitus without complications; G40.909 Epilepsy, unspecified, not intractable, without status epilepticus; F84.0 Autistic disorder; Z79.899 Other long term (current) drug therapy; E66.9 Obesity, unspecified; E03.9 Hypothyroidism, unspecified

== ENCOUNTER → 2019-05-12 | Outpatient (CLI) | payer MEDICAID ==
[~2019-05-12] MED LIST changes: +CLON2TAB7 PO; +DEPA1TAB3 PO; +GUAN1TA PO; +METF-791 PO; -METF500T4 PO; +OLAN20TA14 PO; +RANI-356 PO; +VITA500045 PO
[2019-05-12 20:15] LABS: BASO % 0.3 % (0.0-1.0); EOS % 0.5 % (0.0-3.0); HEMATOCRIT 39.8 % (42.0-52.0); LYMPH # 3.1 10^3/uL (1.5-5.0); LYMPH % 48.3 % (24.0-44.0); MEAN CORPUSCULAR HEMOGLOBIN 31.3 pg (27.0-33.0); MEAN CORPUSCULAR HGB CONC 35.2 g/dl (32.0-36.5); MONO # 0.5 10^3/uL (0.0-0.8); MONO % 8.4 % (0.0-5.0); NEUTROPHILS # 2.7 10^3/uL (1.5-8.5); NEUTROPHILS % 42.3 % (36.0-66.0); PLATELET COUNT, AUTOMATED 196 10^3/uL (150-450); RED BLOOD COUNT 4.47 10^6/uL (4.30-6.10); WHITE BLOOD COUNT 6.3 10^3/uL (4.0-10.0)
[2019-05-12 21:02] LABS: ALBUMIN 3.8 GM/DL (3.2-5.2); ALT/SGPT 52 U/L (12-78); BILIRUBIN,TOTAL 0.3 MG/DL (0.2-1.0); BLOOD UREA NITROGEN 8 MG/DL (7-18); CALCIUM LEVEL 8.8 MG/DL (8.5-10.1); CARBON DIOXIDE LEVEL 31 MEQ/L (21-32); CHLORIDE LEVEL 103 MEQ/L (98-107); CREATININE FOR GFR 0.77 MG/DL (0.70-1.30); FREE T4 1.11 NG/DL (0.76-1.46); GLOMERULAR FILTRATION RATE > 60.0 (>60); GLUCOSE, FASTING 117 MG/DL (70-100); POTASSIUM SERUM 4.3 MEQ/L (3.5-5.1); SODIUM LEVEL 137 MEQ/L (136-145); THYROID STIMULATING HORMONE 0.013 uIU/ML (0.358-3.740); TOTAL PROTEIN 7.4 GM/DL (6.4-8.2); VALPROIC ACID (DEPAKOTE) 65.5 UG/ML (50.0-100.0)
[2019-05-20 00:07] LABS: VITAMIN B6,PYRIDOXAL PHOSPHATE 13.9 ug/L (5.3-46.7)
== END ==
LOC: M LAB 19:06
PROVIDERS: ATTEND Psychiatry & Neurology Child & Adolescent Psychiatry
DX: F84.0 Autistic disorder (principal)

== ENCOUNTER → 2020-01-05 | Outpatient (REF) | payer MEDICAID ==
[~2020-01-05] MED LIST changes: +HYDR-4468 PO; -HYDR-4513 PO; -METF-791 PO; +METF-838 PO; -RANI-356 PO; +RANI-397 PO
[2020-01-05 15:33] LABS: BASO % 0.2 % (0.0-1.0); EOS # 0.1 10^3/uL (0.0-0.5); EOS % 1.1 % (0.0-3.0); HEMATOCRIT 40.7 % (42.0-52.0); HEMOGLOBIN 14.4 g/dl (13.5-17.5); LYMPH % 66.7 % (24.0-44.0); MEAN CORPUSCULAR HGB CONC 35.4 g/dl (32.0-36.5); MEAN CORPUSCULAR VOLUME 87.7 fl (80.0-96.0); MONO # 0.3 10^3/uL (0.0-0.8); NEUTROPHILS # 1.1 10^3/uL (1.5-8.5); NEUTROPHILS % 24.8 % (36.0-66.0); PLATELET COUNT, AUTOMATED 214 10^3/uL (150-450); RED BLOOD COUNT 4.64 10^6/uL (4.30-6.10); WHITE BLOOD COUNT 4.4 10^3/uL (4.0-10.0)
[2020-01-05 15:44] LABS: ALBUMIN 3.6 GM/DL (3.2-5.2); ALT/SGPT 89 U/L (12-78); BILIRUBIN,TOTAL 0.4 MG/DL (0.2-1.0); BLOOD UREA NITROGEN 11 MG/DL (7-18); CALCIUM LEVEL 9.3 MG/DL (8.5-10.1); CARBON DIOXIDE LEVEL 28 MEQ/L (21-32); CHLORIDE LEVEL 108 MEQ/L (98-107); CREATININE FOR GFR 0.74 MG/DL (0.70-1.30); FREE T4 1.16 NG/DL (0.76-1.46); GLOMERULAR FILTRATION RATE > 60.0 (>60); GLUCOSE, FASTING 146 MG/DL (70-100); POTASSIUM SERUM 4.6 MEQ/L (3.5-5.1); SODIUM LEVEL 141 MEQ/L (136-145); THYROID STIMULATING HORMONE 0.012 uIU/ML (0.358-3.740); TOTAL 25(OH) VITAMIN D 23.6 NG/ML (30.0-100.0); TOTAL PROTEIN 7.3 GM/DL (6.4-8.2)
[2020-01-05 15:45] LABS: PTH INTACT 22.8 PG/ML (18.5-88.0)
[2020-01-05 15:55] LABS: HEMOGLOBIN A1c 6.6 %
[2020-01-05 16:14] LABS: CREATININE, URINE 15.6 MG/DL; MALB URINE SIEMENS < 5.0 MG/L
== END ==
LOC: M PLALAB 12:59
PROVIDERS: ATTEND Physician Assistant Medical
DX: K21.9 Gastro-esophageal reflux disease without esophagitis (principal); E55.9 Vitamin D deficiency, unspecified; F41.8 Other specified anxiety disorders; E11.65 Type 2 diabetes mellitus with hyperglycemia

== ENCOUNTER → 2020-01-05 | Outpatient (CLI) | payer MEDICAID ==
[~2020-01-05] MED LIST changes: +GABA-282; -GABA-843; +METH-1164; -METH1TAB40
[2020-01-05 15:40] LABS: BLOOD UREA NITROGEN 10 MG/DL (7-18); CALCIUM LEVEL 9.7 MG/DL (8.5-10.1); CARBON DIOXIDE LEVEL 27 MEQ/L (21-32); CHLORIDE LEVEL 107 MEQ/L (98-107); CREATININE FOR GFR 0.71 MG/DL (0.70-1.30); FREE T4 1.16 NG/DL (0.76-1.46); GLOMERULAR FILTRATION RATE > 60.0 (>60); GLUCOSE, FASTING 147 MG/DL (70-100); POTASSIUM SERUM 4.4 MEQ/L (3.5-5.1); SODIUM LEVEL 138 MEQ/L (136-145)
[2020-01-05 15:55] LABS: HEMOGLOBIN A1c 6.7 %
== END ==
LOC: M PLALAB 13:04
PROVIDERS: ATTEND Internal Medicine Endocrinology, Diabetes & Metabolism
DX: E11.65 Type 2 diabetes mellitus with hyperglycemia (principal); E23.2 Diabetes insipidus; D49.7 Neoplasm of unspecified behavior of endocrine glands and other parts of nervous system

== ENCOUNTER → 2020-07-07 | Outpatient (CLI) | payer MEDICAID ==
[~2020-07-07] MED LIST changes: -GABA-282; +GABA-843; -METH-1164; +METH1TAB40
[2020-07-07 13:42] LABS: HEMOGLOBIN A1c 5.9 %
[2020-07-07 13:58] LABS: BLOOD UREA NITROGEN 11 MG/DL (7-18); CARBON DIOXIDE LEVEL 28 MEQ/L (21-32); CHLORIDE LEVEL 104 MEQ/L (98-107); CREATININE FOR GFR 0.74 MG/DL (0.70-1.30); GLOMERULAR FILTRATION RATE > 60.0 (>60); GLUCOSE, FASTING 139 MG/DL (70-100); POTASSIUM SERUM 3.9 MEQ/L (3.5-5.1); SODIUM LEVEL 138 MEQ/L (136-145)
[2020-07-07 14:09] LABS: MAU/CREAT RATIO 13.1 MCG/MG (0.0-30.0)
== END ==
LOC: M LAB 12:39
PROVIDERS: ATTEND Internal Medicine Endocrinology, Diabetes & Metabolism
DX: D49.7 Neoplasm of unspecified behavior of endocrine glands and other parts of nervous system (principal)

== ENCOUNTER → 2021-02-21 | Outpatient (REF) | payer MEDICAID ==
[~2021-02-21] MED LIST changes: +GABA-282; -GABA-843; +METH-1164; -METH1TAB40; -OLAN15TA PO; +OLAN15TA13 PO
== END ==
LOC: M SFHCPLAZ 12:38
PROVIDERS: ATTEND Physician Assistant Medical
DX: Z53.9 Procedure and treatment not carried out, unspecified reason (principal); G25.81 Restless legs syndrome; E23.2 Diabetes insipidus; F39 Unspecified mood [affective] disorder

== ENCOUNTER → 2021-04-23 | Outpatient (CLI) | payer MEDICAID ==
[2021-04-23 16:39] LABS: BASO % 0.4 % (0.0-1.0); EOS # 0.1 10^3/uL (0.0-0.5); EOS % 1.6 % (0.0-3.0); HEMATOCRIT 37.5 % (42.0-52.0); LYMPH # 3.2 10^3/uL (1.5-5.0); LYMPH % 63.1 % (24.0-44.0); MEAN CORPUSCULAR HEMOGLOBIN 30.2 pg (27.0-33.0); MEAN CORPUSCULAR HGB CONC 34.7 g/dl (32.0-36.5); MEAN CORPUSCULAR VOLUME 87.2 fl (80.0-96.0); MONO # 0.5 10^3/uL (0.0-0.8); MONO % 8.8 % (2.0-8.0); NEUTROPHILS # 1.3 10^3/uL (1.5-8.5); NEUTROPHILS % 25.9 % (36.0-66.0); PLATELET COUNT, AUTOMATED 198 10^3/uL (150-450); WHITE BLOOD COUNT 5.1 10^3/uL (4.0-10.0)
[2021-04-23 17:21] LABS: ALBUMIN 3.5 GM/DL (3.2-5.2); ALT/SGPT 60 U/L (12-78); BILIRUBIN,TOTAL 0.3 MG/DL (0.2-1.0); BLOOD UREA NITROGEN 11 MG/DL (7-18); CALCIUM LEVEL 9.4 MG/DL (8.5-10.1); CARBON DIOXIDE LEVEL 30 MEQ/L (21-32); CHLORIDE LEVEL 106 MEQ/L (98-107); CREATININE FOR GFR 0.76 MG/DL (0.70-1.30); FERRITIN 111 NG/ML (26-388); FREE T4 1.09 NG/DL (0.76-1.46); GLOMERULAR FILTRATION RATE > 60.0 (>60); GLUCOSE, FASTING 123 MG/DL (70-100); IRON (FE) 126 UG/DL (65-175); POTASSIUM SERUM 4.4 MEQ/L (3.5-5.1); PTH INTACT 32.7 PG/ML (18.5-88.0); SODIUM LEVEL 142 MEQ/L (136-145); THYROID STIMULATING HORMONE < 0.005 uIU/ML (0.358-3.740); TOTAL PROTEIN 6.9 GM/DL (6.4-8.2); VALPROIC ACID (DEPAKOTE) 53.9 UG/ML (50.0-100.0)
[2021-04-23 19:30] LABS: HEMOGLOBIN A1c 6.6 %
== END ==
LOC: M WUC 12:01
PROVIDERS: ATTEND Physician Assistant Medical
DX: F39 Unspecified mood [affective] disorder (principal); E55.9 Vitamin D deficiency, unspecified; G25.81 Restless legs syndrome; E23.2 Diabetes insipidus

== ENCOUNTER → 2021-08-02 | Outpatient (CLI) | payer MEDICAID ==
[2021-08-02 15:43] LABS: HEMOGLOBIN A1c 7.2 %
[2021-08-02 15:51] LABS: BLOOD UREA NITROGEN 9 MG/DL (7-18); CALCIUM LEVEL 9.5 MG/DL (8.5-10.1); CARBON DIOXIDE LEVEL 29 MEQ/L (21-32); CHLORIDE LEVEL 102 MEQ/L (98-107); CREATININE FOR GFR 0.67 MG/DL (0.70-1.30); FREE T4 1.21 NG/DL (0.76-1.46); GLOMERULAR FILTRATION RATE > 60.0 (>60); GLUCOSE, FASTING 142 MG/DL (70-100); SODIUM LEVEL 138 MEQ/L (136-145)
== END ==
LOC: M PLALAB 13:18
PROVIDERS: ATTEND Internal Medicine Endocrinology, Diabetes & Metabolism
DX: E11.65 Type 2 diabetes mellitus with hyperglycemia (principal)

== ENCOUNTER → 2022-04-15 | Outpatient (REF) | payer MEDICAID ==
[2022-04-15 17:28] LABS: BLOOD UREA NITROGEN 11 MG/DL (7-18); CALCIUM LEVEL 9.5 MG/DL (8.5-10.1); CARBON DIOXIDE LEVEL 29 MEQ/L (21-32); CHLORIDE LEVEL 101 MEQ/L (98-107); CREATININE FOR GFR 0.81 MG/DL (0.70-1.30); GLOMERULAR FILTRATION RATE > 60.0 (>60); GLUCOSE, FASTING 85 MG/DL (70-100); POTASSIUM SERUM 4.8 MEQ/L (3.5-5.1); SODIUM LEVEL 137 MEQ/L (136-145)
[2022-04-15 17:57] LABS: MALB URINE SIEMENS 46.3 MG/L; MAU/CREAT RATIO 11.3 MCG/MG (0.0-30.0)
[2022-04-15 18:17] LABS: HEMOGLOBIN A1c 5.4 %
== END ==
LOC: M WUC 16:24
PROVIDERS: ATTEND Nurse Practitioner Family
DX: E11.65 Type 2 diabetes mellitus with hyperglycemia (principal)

== ENCOUNTER → 2022-05-20 | Outpatient (CLI) | payer MEDICAID ==
[~2022-05-20] MED LIST changes: +ISOVUE-370 76% 100ML VIAL As Ordered ONE
== END ==
LOC: M RAD 10:01
PROVIDERS: ATTEND Psychiatry & Neurology Neurology
DX: D35.3 Benign neoplasm of craniopharyngeal duct (principal); G40.309 Generalized idiopathic epilepsy and epileptic syndromes, not intractable, without status epilepticus; J34.1 Cyst and mucocele of nose and nasal sinus
CPT/HCPCS: 70470; Q9967

== ENCOUNTER → 2023-04-30 | Outpatient (CLI) | payer MEDICAID ==
[~2023-04-30] MED LIST changes: +CLON-952 PO; +DESM0.1T16 PO; -DESM0.1T2 PO; -ISOVUE-370 76% 100ML VIAL As Ordered ONE; -KLON2TAB PO
[2023-04-30 17:24] LABS: ALBUMIN 3.7 G/DL (3.2-5.2); ALKALINE PHOSPHATASE 105 U/L (46-116); ALT/SGPT 40 U/L (7.0-40); AST/SGOT 19 U/L (<34); BILIRUBIN,TOTAL 0.3 MG/DL (0.3-1.2); BLOOD UREA NITROGEN 14 MG/DL (9-23); CALCIUM LEVEL 9.2 MG/DL (8.5-10.1); CARBON DIOXIDE LEVEL 28 MMOL/L (20-31); CHLORIDE LEVEL 99 MMOL/L (98-107); CHOLESTEROL LEVEL 170 MG/DL (<200); CHOLESTEROL RISK RATIO 2.84 (<5); CREATININE FOR GFR 0.61 MG/DL (0.70-1.30); FREE T4 1.31 NG/DL (0.89-1.76); GLOMERULAR FILTRATION RATE > 60.0 (>60); GLUCOSE, FASTING 80 MG/DL (60-100); HDL CHOLESTEROL 59.7 MG/DL (>40); LDL CHOLESTEROL 83.1 MG/DL (<100); NON-HDL-C 110.3 MG/DL; POTASSIUM SERUM 4.1 MMOL/L (3.5-5.1); SODIUM LEVEL 133 MMOL/L (136-145); TRIGLYCERIDES LEVEL 136 MG/DL (<150)
[2023-04-30 18:23] LABS: HEMOGLOBIN A1c 5.4 % (4.0-6.0)
== END ==
LOC: M WUC 14:26
PROVIDERS: ATTEND Nurse Practitioner Family
DX: E11.65 Type 2 diabetes mellitus with hyperglycemia (principal); D49.7 Neoplasm of unspecified behavior of endocrine glands and other parts of nervous system

== ENCOUNTER → 2023-04-30 | Outpatient (CLI) | payer MEDICAID ==
[2023-04-30 16:55] LABS: BASO % 0.6 % (0.0-1.0); EOS % 0.8 % (0.0-3.0); HEMATOCRIT 34.9 % (42.0-52.0); HEMOGLOBIN 12.3 g/dl (13.5-17.5); LYMPH # 2.6 10^3/uL (1.5-5.0); LYMPH % 48.7 % (24.0-44.0); MEAN CORPUSCULAR HEMOGLOBIN 30.7 pg (27.0-33.0); MEAN CORPUSCULAR HGB CONC 35.2 g/dl (32.0-36.5); MONO # 0.5 10^3/uL (0.0-0.8); MONO % 8.8 % (2.0-8.0); NEUTROPHILS # 2.2 10^3/uL (1.5-8.5); NEUTROPHILS % 40.3 % (36.0-66.0); PLATELET COUNT, AUTOMATED 187 10^3/uL (150-450); RED BLOOD COUNT 4.01 10^6/uL (4.30-6.10); WHITE BLOOD COUNT 5.3 10^3/uL (4.0-10.0)
[2023-04-30 17:20] LABS: TOTAL 25(OH) VITAMIN D 30.5 NG/ML (20.0-100.0)
[2023-04-30 17:21] LABS: FERRITIN 71.1 NG/ML (10.5-307.3); THYROID STIMULATING HORMONE 0.011 uIU/ML (0.55-4.78)
[2023-04-30 17:23] LABS: ALBUMIN 3.8 G/DL (3.2-5.2); ALKALINE PHOSPHATASE 109 U/L (46-116); ALT/SGPT 39 U/L (7.0-40); AST/SGOT 22 U/L (<34); BILIRUBIN,TOTAL 0.3 MG/DL (0.3-1.2); BLOOD UREA NITROGEN 14 MG/DL (9-23); CALCIUM LEVEL 9.3 MG/DL (8.5-10.1); CARBON DIOXIDE LEVEL 28 MMOL/L (20-31); CHLORIDE LEVEL 99 MMOL/L (98-107); CHOLESTEROL LEVEL 175 MG/DL (<200); CHOLESTEROL RISK RATIO 2.93 (<5); CREATININE FOR GFR 0.62 MG/DL (0.70-1.30); GLOMERULAR FILTRATION RATE > 60.0 (>60); GLUCOSE, FASTING 79 MG/DL (60-100); HDL CHOLESTEROL 59.6 MG/DL (>40); IRON (FE) 88 UG/DL (65-175); NON-HDL-C 115.4 MG/DL; POTASSIUM SERUM 4.2 MMOL/L (3.5-5.1); PTH INTACT 24.4 PG/ML (18.5-88.0); SODIUM LEVEL 134 MMOL/L (136-145); TRIGLYCERIDES LEVEL 132 MG/DL (<150)
[2023-04-30 17:24] LABS: FREE T4 1.28 NG/DL (0.89-1.76)
[2023-04-30 18:22] LABS: HEMOGLOBIN A1c 5.4 % (4.0-6.0)
== END ==
LOC: M WUC 14:24
PROVIDERS: ATTEND Physician Assistant Medical
DX: E11.65 Type 2 diabetes mellitus with hyperglycemia (principal); E55.9 Vitamin D deficiency, unspecified; E03.8 Other specified hypothyroidism; G25.81 Restless legs syndrome

== ENCOUNTER → 2023-11-25 | Outpatient (CLI) | payer MEDICAID ==
[2023-11-25 17:01] LABS: BLOOD UREA NITROGEN 12 MG/DL (9-23); CALCIUM LEVEL 8.8 MG/DL (8.5-10.1); CARBON DIOXIDE LEVEL 23 MMOL/L (20-31); CHLORIDE LEVEL 106 MMOL/L (98-107); GLOMERULAR FILTRATION RATE > 60.0 (>60); GLUCOSE, FASTING 167 MG/DL (60-100); POTASSIUM SERUM 4.1 MMOL/L (3.5-5.1); SODIUM LEVEL 138 MMOL/L (136-145)
[2023-11-25 17:05] LABS: FREE T4 1.44 NG/DL (0.89-1.76)
[2023-11-25 17:45] LABS: HEMOGLOBIN A1c 5.6 % (4.0-6.0)
== END ==
LOC: M WUC 12:24
PROVIDERS: ATTEND Nurse Practitioner Family
DX: E11.65 Type 2 diabetes mellitus with hyperglycemia (principal); D49.7 Neoplasm of unspecified behavior of endocrine glands and other parts of nervous system; E23.2 Diabetes insipidus

== ENCOUNTER → 2023-11-25 | Outpatient (CLI) | payer MEDICAID ==
[2023-11-25 16:58] LABS: BASO % 0.4 % (0.0-1.0); EOS % 0.7 % (0.0-3.0); HEMATOCRIT 35.5 % (42.0-52.0); HEMOGLOBIN 12.6 g/dl (13.5-17.5); LYMPH # 3.4 10^3/uL (1.5-5.0); LYMPH % 59.2 % (24.0-44.0); MEAN CORPUSCULAR HEMOGLOBIN 30.8 pg (27.0-33.0); MEAN CORPUSCULAR HGB CONC 35.5 g/dl (32.0-36.5); MEAN CORPUSCULAR VOLUME 86.8 fl (80.0-96.0); MONO # 0.3 10^3/uL (0.0-0.8); MONO % 4.9 % (2.0-8.0); NEUTROPHILS % 34.6 % (36.0-66.0); PLATELET COUNT, AUTOMATED 239 10^3/uL (150-450); RED BLOOD COUNT 4.09 10^6/uL (4.30-6.10); WHITE BLOOD COUNT 5.7 10^3/uL (4.0-10.0)
[2023-11-25 17:00] LABS: VALPROIC ACID (DEPAKOTE) 64.5 UG/ML (50.0-100.0)
[2023-11-25 17:03] LABS: IRON (FE) 73 UG/DL (65-175)
[2023-11-25 17:54] LABS: ALBUMIN 3.4 G/DL (3.2-5.2); ALKALINE PHOSPHATASE 124 U/L (46-116); ALT/SGPT 39 U/L (7.0-40); AST/SGOT 19 U/L (<34); BILIRUBIN,TOTAL 0.3 MG/DL (0.3-1.2); BLOOD UREA NITROGEN 12 MG/DL (9-23); CALCIUM LEVEL 8.8 MG/DL (8.5-10.1); CARBON DIOXIDE LEVEL 22 MMOL/L (20-31); CHLORIDE LEVEL 106 MMOL/L (98-107); FERRITIN 46.6 NG/ML (10.5-307.3); GLOMERULAR FILTRATION RATE > 60.0 (>60); GLUCOSE, FASTING 167 MG/DL (60-100); POTASSIUM SERUM 4.2 MMOL/L (3.5-5.1); SODIUM LEVEL 138 MMOL/L (136-145); TOTAL PROTEIN 6.7 G/DL (5.7-8.2)
== END ==
LOC: M WUC 12:27
PROVIDERS: ATTEND Physician Assistant Medical
DX: R71.0 Precipitous drop in hematocrit (principal); F39 Unspecified mood [affective] disorder; R79.89 Other specified abnormal findings of blood chemistry

== ENCOUNTER → 2024-01-14 | Outpatient (CLI) | payer MEDICAID ==
[2024-01-14 16:01] LABS: THYROID STIMULATING HORMONE 0.008 uIU/ML (0.55-4.78)
[2024-01-14 16:02] LABS: FREE T4 1.3 NG/DL (0.89-1.76); HEMOGLOBIN A1c 5.7 % (4.0-6.0)
== END ==
LOC: M PLALAB 12:30
PROVIDERS: ATTEND Physician Assistant Medical
DX: E11.65 Type 2 diabetes mellitus with hyperglycemia (principal); E89.0 Postprocedural hypothyroidism; G62.9 Polyneuropathy, unspecified

== ENCOUNTER → 2024-04-19 | Outpatient (CLI) | payer MEDICAID ==
[~2024-04-19] MED LIST changes: -OLAN20TA14 PO; +OLAN20TA53 PO
[2024-04-19 18:51] LABS: BLOOD UREA NITROGEN 16 MG/DL (9-23); CREATININE FOR GFR 0.76 MG/DL (0.70-1.30); GLOMERULAR FILTRATION RATE > 60.0 (>60)
== END ==
LOC: M WUC 12:10
PROVIDERS: ATTEND Psychiatry & Neurology Neurology
DX: I10 Essential (primary) hypertension (principal)

== ENCOUNTER → 2024-05-11 | Outpatient (CLI) | payer MEDICAID ==
[~2024-05-11] MED LIST changes: +GABA-1172; -GABA-282; +ISOVUE-370 76% 100ML VIAL As Ordered ONE; -OLAN15TA13 PO; +OLAN15TA69 PO
== END ==
LOC: M RAD 10:29
PROVIDERS: ATTEND Psychiatry & Neurology Neurology
DX: D35.3 Benign neoplasm of craniopharyngeal duct (principal); G40.309 Generalized idiopathic epilepsy and epileptic syndromes, not intractable, without status epilepticus
CPT/HCPCS: 70470; Q9967